=== PATIENT | male | born 1960 | race Caucasian/White ===

== ENCOUNTER 2020-10-29 12:30 | Outpatient (REF) | payer MEDICARE, MEDICAID, SELFPAY ==
--- NOTE | 2020-10-31 08:38 | MHC.AU.AHA ---
Adult Audiological Evaluation Date of Visit: 10/31/20 Reason for Appointment: History of hearing loss. Patient arrives to determine if there has been a change in hearing. Previous Hearing Test Results: At this clinic on 04/23/2018- Borderline-normal sloping to severe sensorineural hearing loss bilaterally Ear History: Recent Ear Drainage: None Reported Recent Ear Pain: None Reported Previous Ear Surgery: None Reported Bothersome Tinnitus/Ringing/Noises in Ears: None Reported History of occupational noise exposure?: No History: No Medical History: Medical History: Autism Spectrum Disorder, Dementia, Tremor, Hypertension, Diabetes Hearing Instrument History- Right Ear: Procurement Representative: [email or web address] Model: [employer]0-P BTE Serial Number: [id number] Battery Size: 13 Repair Warranty: 09/01/2017 Loss and Damage Warranty: 09/01/2017 Dispensed By: [facility] Date of Fittin06/25/2015 Hearing Instrument History- Left Ear: Procurement Representative: [email or web address] Model: [employer]0-P [employer] Serial Number: [id number] Battery Size: 13 Warranty: 09/01/2017 Loss and Damage Warranty: 09/01/2017 Dispensed By: [facility] Date of Fittin06/25/2015 Otoscopy: Right Ear: Unremarkable Left Ear: Unremarkable Tympanometry: Tympanometry performed due to: To assess integrity of the middle ear system Right Ear: Normal Middle Ear System (Type A) Left Ear: Normal Middle Ear System (Type A) Hearing Evaluation: Transducer(s) Used: Insert Earphones Method: Conventional Audiometry Stimuli Used: Pure Tones Right Ear: Description of Hearing: Mild sloping to profound sensorineural hearing loss Left Ear: Description of Hearing: Mild sloping to profound sensorineural hearing loss Speech Recognition Threshold (SRT): Method Used: Recorded Lists Stimuli Used: Spondee Words Right Ear: 50 dBHL Left Ear: 45 dBHL Word Discrimination: Method: Recorded Lists Word Lists Used: NU-6 Right Ear: 92% at 80 dBHL Left Ear: 92% at 80 dBHL Comparison: Compared to the most recent evaluation: Thresholds have decreased bilaterally. Recommendations: Audiological re-evaluation in one year. Hearing aid maintenance performed today. Hearing aid(s) reprogrammed with updated test results. See Hearing Aid Evaluation report for more information. Diagnosis: Primary Diagnosis: H90.3 Bilateral Sensorineural Hearing Loss Secondary Diagnosis: Services Performed: Comprehensive Audiological Evaluation (CPT 30460), Tympanometry (CPT 54013) Signature: Provider: Benedicto Schafer, CCC-A
--- NOTE | 2020-10-31 08:39 | MHC.AU.MED ---
Medical Clearance for Hearing Instrumentation Date: 10/29/20 Patient Name: Ashish Prieto Date of : 1960 Primary Care Provider: Referring Provider: Kathleen Clarke MD We have seen your patient on 10/31/20 and have determined that they are a candidate for amplification (See accompanying report). Specifically, they would benefit from: Hearing aid use in both ears There is a statute that addresses Medical Evaluation Requirements prior to fitting a patient with a hearing aid. According to [place] statute 265 CMR:6.03(1), (a) General. Except as provided in 265 CMR 6.03(1)(b), a validation manager shall not sell a hearing aid unless the prospective user has presented to the validation manager a written statement signed by a licensed physician that states that the patient's hearing loss has been medically evaluated and the patient may be considered a candidate for a hearing aid. The medical evaluation must have taken place within the preceding six months. Please note: Due to the [place] Statute referenced above, we cannot accept a signature other than that of a licensed physician. AIRPLANE GASTANK LINER ASSEMBLER and PA signatures cannot be accepted. I am in agreement with the above recommendation. There is no medical contraindication for hearing instrumentation. Physician Signature Date Physician Name (Printed)
--- NOTE | 2020-10-31 08:50 | MHC.AU.HAS ---
Hearing Aid Evaluation Date of Visit: 10/31/20 Historical Information: Description of Hearing: Mild sloping to profound sensorineural hearing loss Current personal amplification information, if applicable: Phonak Bolero V50-P BTE Summary: Patient was seen for audiological re-evaluation (see separate report for details). Hearing aid options were discussed with patient and his sister. His sister thinks the slim tube style may be easier to the patient to insert on his own, and that rechargeable may also be easier for the patient to use as well. If the patient does not find the slim tube easier to insert, it can always be replaced with a tone hook and mold in the future. Patient does not have any Bluetooth devices he uses on a regular basis. Hearing Aid Prescription: Based on the individual?s shared listening needs, communication environments, dexterity, desire for connectivity, and personal preferences, the following prescription for amplification has been made: Right ear: Building Carpenter: Phonak Model: Bolero M70-R Battery Size: 13 Color: White Tubing: Size 1 slim tube Left ear: Building Carpenter: Phonak Model: Bolero M70-R Battery Size: 13 Color: White Tubing: Size 1 slim tube Action Taken/Action Needed: Medical Clearance to be requested from PCP/ENT Hearing Fitting to be scheduled when materials arrive Call sister when materials are in at (cell) [phone]. Primary Diagnosis: H90.3 Bilateral Sensorineural Hearing Loss Signature: Provider: Benedicto Schafer, CCC-A
--- NOTE | 2020-10-31 11:04 | MHC.AU.MED ---
Medical Clearance for Hearing Instrumentation Date: 10/31/20 Patient Name: Ashish Prieto Date of : 1960 Primary Care Provider: Referring Provider: Kathleen Clarke MD We have seen your patient on 10/29/20 and have determined that they are a candidate for amplification (See accompanying report). Specifically, they would benefit from: Hearing aid use in the right ear Hearing aid use in the left ear Hearing aid use in both ears There is a statute that addresses Medical Evaluation Requirements prior to fitting a patient with a hearing aid. According to [place] statute 265 CMR:6.03(1), (a) General. Except as provided in 265 CMR 6.03(1)(b), a office coordinator receptionist shall not sell a hearing aid unless the prospective user has presented to the office coordinator receptionist a written statement signed by a licensed physician that states that the patient's hearing loss has been medically evaluated and the patient may be considered a candidate for a hearing aid. The medical evaluation must have taken place within the preceding six months. Please note: Due to the [place] Statute referenced above, we cannot accept a signature other than that of a licensed physician. JOB PRINTER APPRENTICE and PA signatures cannot be accepted. I am in agreement with the above recommendation. There is no medical contraindication for hearing instrumentation. Physician Signature Date Physician Name (Printed)
--- NOTE | 2020-10-31 11:05 | MHC.AU.MED ---
Medical Clearance for Hearing Instrumentation Date: 10/31/20 Patient Name: Ashish Prieto Date of : 1960 Primary Care Provider: Referring Provider: Kathleen Clarke MD We have seen your patient on 10/29/20 and have determined that they are a candidate for amplification (See accompanying report). Specifically, they would benefit from: Hearing aid use in both ears There is a statute that addresses Medical Evaluation Requirements prior to fitting a patient with a hearing aid. According to [place] statute 265 CMR:6.03(1), (a) General. Except as provided in 265 CMR 6.03(1)(b), a hearing aid specialist shall not sell a hearing aid unless the prospective user has presented to the hearing aid specialist a written statement signed by a licensed physician that states that the patient's hearing loss has been medically evaluated and the patient may be considered a candidate for a hearing aid. The medical evaluation must have taken place within the preceding six months. Please note: Due to the [place] Statute referenced above, we cannot accept a signature other than that of a licensed physician. CREAM BUYER and PA signatures cannot be accepted. I am in agreement with the above recommendation. There is no medical contraindication for hearing instrumentation. Physician Signature Date Physician Name (Printed)
== END 2020-10-29 12:31 | disposition home or self-care (01) ==
LOC: HO.SH 12:30
PROVIDERS: Visit Provider Internal Medicine
DX: Z46.1 Encounter for fitting and adjustment of hearing aid (principal); H90.3 Sensorineural hearing loss, bilateral
CPT/HCPCS: 92557; 92567; 92591

== ENCOUNTER 2020-11-14 10:58 | Outpatient (REF) | payer MEDICARE, MEDICAID, SELFPAY ==
--- NOTE | 2020-11-15 09:59 | MHC.AU.HFA ---
Hearing Instrument Fitting- Adult- Binaural Date of Visit: 11/14/20 Hearing Instruments Dispensed: Right Ear: Truck Striker: Phonak Model: [employer] M70-R Serial Number: [id number] Repair Warranty: 01/30/2024 Loss and Damage Warranty: 01/30/2024 Battery Size: Rechargeable Color: White Tubing: Size 1 slim tube Type of Dome: Small Vented Left Ear: Truck Striker: Phonak Model: [employer] M70-R Serial Number: [id number] RepairWarranty: 01/30/2024 Loss and Damage Warranty: 01/30/2024 Battery Size: Rechargeable Color: White Tubing: Size 1 slim tube Type of Dome: Small Vented Summary of Fitting: Feedback support manager was run. Verifit performed and levels adjusted to better reach targets. Target gain at 100%. Patient reports the sound is comfortable, and not too loud. Patient does not have a smartphone to pair to the hearing aids. Hearing aid care and use were discussed and practiced. Patient and his caregiver are both experienced hearing aid users. Recommendations: Recommendations: Patient's caregiver will call if follow-up is needed. Diagnosis Code(s): Primary Diagnosis: H90.3 Bilateral Sensorineural Hearing Loss Signature: Provider: Benedicto Schafer, ALEKSEY-A
== END 2020-11-14 10:59 | disposition home or self-care (01) ==
LOC: HO.HAP 10:58
PROVIDERS: Visit Provider Internal Medicine
DX: Z46.1 Encounter for fitting and adjustment of hearing aid (principal); H90.3 Sensorineural hearing loss, bilateral
CPT/HCPCS: V5011; V5020; V5160; V5261

== ENCOUNTER 2020-12-10 15:22 | Outpatient (REF) | payer MEDICARE, MEDICAID, SELFPAY ==
--- NOTE | 2020-12-11 10:47 | MHC.AU.P13 ---
Hearing Instrument Problem Date of Visit: 12/10/20 Right Ear: Caustic Operator: Phonak Model: [employer] M70-R Serial Number: [id number] Repair Warranty: 01/30/2024 Loss and Damage Warranty: 01/30/2024 Battery Size: Rechargeable Color: White Tubing: Size 1 slim tube Type of Dome: Small Vented Left Ear: Caustic Operator: Phonak Model: [employer] M70-R Serial Number: [id number] Repair Warranty: 01/30/2024 Loss and Damage Warranty: 01/30/2024 Battery Size: Rechargeable Color: White Tubing: Size 1 slim tube Type of Dome: Small Vented Follow-Up Summary: Assistant Nurse Manager dropped off aids/principal software engineer stating not charging. It appears left is not charging - sent both to [employer] for repair/check - principal software engineer in repair drawer. Assistant Nurse Manager reports patient using old hearing aids for now. Recommendations: Recommendations: Patient will be contacted when materials have arrived. Signature: Provider: DI Dupont
== END 2020-12-10 15:23 | disposition home or self-care (01) ==
LOC: HO.HAP 15:22
PROVIDERS: Visit Provider Internal Medicine
DX: Z13.89 Encounter for screening for other disorder (principal)

== ENCOUNTER 2020-12-24 12:56 | Outpatient (REF) | payer MEDICARE, MEDICAID, SELFPAY | END 2020-12-24 12:57 | disposition home or self-care (01) | LOC: HO.HAP 12:56 | PROVIDERS: Visit Provider Internal Medicine | DX: Z13.89 Encounter for screening for other disorder (principal) ==

== ENCOUNTER 2021-03-28 10:10 | Outpatient (REF) | payer MEDICARE, MEDICAID, SELFPAY ==
[2021-03-28 10:58] LABS: MANUAL DIFF FLAG NO
[2021-03-28 11:05] LABS: Basophils Absolute Auto 0.1 X10*3/uL (0.0-0.2); Basophils Percent Auto 0.8 % (0-2); Eosinophils Absolute Auto 0.1 X10*3/uL (0.0-0.4); Eosinophils Percent Auto 1.5 % (0-4); Hematocrit 45.2 % (42-52); Hemoglobin 15.5 g/dl (14.0-18.0); Imm Gran Abs Auto 0.14 X10*3/uL (0.00-0.03); Imm Gran Pct Auto 1.8 % (0.0-0.4); Lymphocytes Absolute Auto 0.9 X10*3/uL (1.2-4.9); Mean Corpuscular HGB Conc 34.3 g/dl (31.0-36.0); Mean Corpuscular Hemoglobin 29.3 pg (27.0-33.0); Mean Corpuscular Volume 85.4 fL (80-98); Mean Platelet Volume 8.9 fL (9.4-12.4); Monocytes Absolute Auto 0.5 X10*3/uL (0.1-1.2); Monocytes Percent Auto 6.6 % (2-11); Neutrophils Absolute Auto 6.1 X10*3/uL (2.0-8.3); Neutrophils Percent Auto 78.3 % (45-73); Platelet Count 162 X10*3/uL (160-400); Red Blood Count 5.29 X10*6/uL (4.60-5.80); Red Cell Distribution Width 13.3 % (11.0-16.0); White Blood Count 7.8 X10*3/uL (4.8-10.8)
[2021-03-28 11:10] LABS: Estimated Average Glucose 108 mg/dL; Hemoglobin A1c % 5.4 %
[2021-03-28 11:28] LABS: Alanine Aminotransferase 17 U/L (0-40); Albumin Level 4.4 g/dL (3.5-5.0); Alkaline Phosphatase 79 U/L (39-117); Anion Gap 11 (12-20); Aspartate Amino Transferase 14 U/L (5-37); Blood Urea Nitrogen 11 mg/dL (9-16); Calcium 9.5 mg/dL (8.4-10.2); Carbon Dioxide 29 mmol/L (22-29); Chloride 105 mmol/L (96-108); Cholesterol 135 mg/dL; Estimated Glomerular Filt Rate > 60; Glucose Random 164 mg/dL (60-115); HDL Cholesterol 41 mg/dL; LDL Cholesterol Calculated 76 mg/dl; Potassium 4.1 mmol/L (3.3-5.1); Sodium 141 mmol/L (135-145); Total Protein 6.5 g/dL (6.5-8.0); Triglycerides 91 mg/dL
[2021-03-28 11:52] LABS: Free T4 (Free Thyroxine) 0.87 ng/dL (0.71-1.85); Prostate Specific Antigen Scr 0.89 ng/mL (<0.05-4.0); Thyroid Stimulating Hormone 1.85 uIU/mL (0.32-4.0)
== END 2021-03-28 10:11 | disposition home or self-care (01) ==
LOC: HO.LAB 10:10
PROVIDERS: PCP Internal Medicine; Visit Provider Internal Medicine
DX: Z12.5 Encounter for screening for malignant neoplasm of prostate (principal); E11.65 Type 2 diabetes mellitus with hyperglycemia; E78.00 Pure hypercholesterolemia, unspecified
CPT/HCPCS: 36415; 80053; 80061; 83036; 84153; 84439; 84443; 85025

== ENCOUNTER 2021-03-29 11:52 | Outpatient (REF) | payer MEDICARE, MEDICAID, SELFPAY ==
[2021-03-29 12:35] LABS: Microalbum/Creatinine Ratio Ur 8.3 ug/mg cr
== END 2021-03-29 11:53 | disposition home or self-care (01) ==
LOC: HO.LNP 11:52
PROVIDERS: Visit Provider Internal Medicine
DX: E11.65 Type 2 diabetes mellitus with hyperglycemia (principal)
CPT/HCPCS: 82043

== ENCOUNTER 2022-02-18 13:42 | Outpatient (REF) | payer MEDICARE, MEDICAID, SELFPAY ==
--- NOTE | ~2022-02-18 | US_ITS ---
EXAMINATION: US PELVIS LIMITED (BLADDER) CLINICAL INFORMATION: Urinary incontinence. COMPARISON: Ultrasound urinary bladder 03/29/2014. TECHNIQUE: Real-time imaging of the bladder. FINDINGS: BLADDER: Partially distended. Bilateral ureteral jets are demonstrated. Prevoid bladder volume is 62.6 mL. Postvoid bladder volume: Patient could not void. US/US bladder IMPRESSION: With a bladder volume of 62.6 mL, the patient was unable to void.
== END 2022-02-18 13:43 | disposition home or self-care (01) ==
LOC: HO.HMGCX 13:42
PROVIDERS: Visit Provider Internal Medicine
DX: R32 Unspecified urinary incontinence (principal)
CPT/HCPCS: 76857

== ENCOUNTER 2022-02-22 07:17 | Outpatient (REF) | payer MEDICARE, MEDICAID, SELFPAY ==
[2022-02-22 11:01] LABS: MANUAL DIFF FLAG NO
[2022-02-22 11:05] LABS: Basophils Percent Auto 0.5 % (0-2); Eosinophils Absolute Auto 0.1 X10*3/uL (0.0-0.4); Eosinophils Percent Auto 2.1 % (0-4); Hematocrit 41.8 % (42.0-52.0); Hemoglobin 14.2 g/dl (14.0-18.0); Imm Gran Abs Auto 0.08 X10*3/uL (0.00-0.03); Imm Gran Pct Auto 1.3 % (0.0-0.4); Lymphocytes Absolute Auto 0.8 X10*3/uL (1.2-4.9); Lymphocytes Percent Auto 12.8 % (20-40); Mean Corpuscular Hemoglobin 29.5 pg (27.0-33.0); Mean Corpuscular Volume 86.7 fL (80.0-98.0); Mean Platelet Volume 9.7 fL (9.4-12.4); Monocytes Absolute Auto 0.6 X10*3/uL (0.1-1.2); Neutrophils Absolute Auto 4.6 x10*3/uL (2.0-8.3); Neutrophils Percent Auto 74.3 % (45-73); Platelet Count 148 X10*3/uL (160-400); Red Blood Count 4.82 X10*6/uL (4.60-5.80); Red Cell Distribution Width 14.1 % (11.0-16.0); White Blood Count 6.2 X10*3/uL (4.8-10.8)
[2022-02-22 11:17] LABS: Estimated Average Glucose 114 mg/dL; Hemoglobin A1c % 5.6 %
[2022-02-22 11:35] LABS: Alanine Aminotransferase 21 U/L (0-40); Albumin Level 4.2 g/dL (3.5-5.0); Alkaline Phosphatase 82 U/L (39-117); Anion Gap 8 (12-20); Aspartate Amino Transferase 12 U/L (5-37); Bilirubin Total 0.3 mg/dL (0.0-1.0); Blood Urea Nitrogen 17 mg/dL (9-16); Calcium 8.4 mg/dL (8.4-10.2); Carbon Dioxide 29 mmol/L (22-29); Chloride 109 mmol/L (96-108); Cholesterol 106 mg/dL; Estimated Glomerular Filt Rate > 60; Glucose Random 183 mg/dL (60-115); HDL Cholesterol 38 mg/dL; LDL Cholesterol Calculated 50 mg/dl; Potassium 4.6 mmol/L (3.3-5.1); Sodium 141 mmol/L (135-145); Total Protein 6.2 g/dL (6.5-8.0); Triglycerides 91 mg/dL
[2022-02-22 11:44] LABS: Free T4 (Free Thyroxine) 0.82 ng/dL (0.71-1.85); Prostate Specific Antigen Scr 0.67 ng/mL (<0.05-4.0); Thyroid Stimulating Hormone 1.34 uIU/mL (0.32-4.0)
[2022-02-22 11:45] LABS: Microalbum/Creatinine Ratio Ur 6.2 ug/mg cr
[2022-02-22 11:58] LABS: Folate 6.8 ng/mL (> or = 4.0); Vitamin B12 486 pg/mL (200-900)
== END 2022-02-22 07:18 | disposition home or self-care (01) ==
LOC: HO.HMGCLDS 07:17
PROVIDERS: PCP Internal Medicine; Visit Provider Internal Medicine
DX: Z12.5 Encounter for screening for malignant neoplasm of prostate (principal); E11.65 Type 2 diabetes mellitus with hyperglycemia; E78.00 Pure hypercholesterolemia, unspecified; I10 Essential (primary) hypertension
CPT/HCPCS: 36415; 80053; 80061; 82043; 82607; 82746; 83036; 84153; 84439; 84443; 85025

== ENCOUNTER 2022-03-27 12:30 | Outpatient (REF) | payer MEDICARE, MEDICAID, SELFPAY ==
--- NOTE | 2022-03-28 08:13 | MHC.AU.AHA ---
Adult Audiological Evaluation Date of Visit: 03/27/22 Reason for Appointment: History of hearing loss. He arrives today to determine if there has been a change in hearing. His supervisor fabrication reports that as his dementia progresses, his self-injurious behaviors have increased, including hitting his head and ears. She is concerned that he could be damaging his ears or hearing. They are working with his medical team to reduce these behaviors. Previous Hearing Test Results: At this clinic on 10/29/2020- Mild to profound sensorineural hearing loss bilaterally, worse in the right ear from 250-1000 Hz Medical History: Medical History: Autism Spectrum Disorder, Dementia, Tremor, Hypertension, Diabetes Hearing Instrument History- Right Ear: Manufacturing Test Technician: Connolly Model: [employer] Digital70-R Serial Number: [id number] Battery Size: Rechargeable Repair Warranty: 01/30/2024 Loss and Damage Warranty: 01/30/2024 Dispensed By: [facility] Date of Fittin11/14/2020 Hearing Instrument History- Left Ear: Manufacturing Test Technician: Connolly Model: [employer] Digital70-R Serial Number: [id number] Battery Size: Rechargeable Warranty: 01/30/2024 Loss and Damage Warranty: 01/30/2024 Dispensed By: [facility] Date of Fittin11/14/2020 Otoscopy: Right Ear: Partially occluded with cerumen- cerumen removal performed prior to testing Left Ear: Partially occluded with cerumen- cerumen removal performed prior to testing Tympanometry: Tympanometry performed due to: To assess integrity of the middle ear system Right Ear: Normal Middle Ear System (Type A) Left Ear: Hypercompliant Middle Ear System (Type Ad) Hearing Evaluation: Transducer(s) Used: Insert Earphones Method: Conventional Audiometry Stimuli Used: Pure Tones Right Ear: Description of Hearing: Moderate to profound sensorineural hearing loss Left Ear: Description of Hearing: Mild to profound sensorineural hearing loss Speech Recognition Threshold (SRT): Method Used: Monitored Live Voice Stimuli Used: Spondee Words Right Ear: 45 dBHL Left Ear: 35 dBHL Word Discrimination: Method: Recorded Lists Word Lists Used: W-22 Right Ear: 96% at 85 dBHL Left Ear: 88% at 85 dBHL Comparison: Compared to the most recent evaluation: Thresholds have decreased bilaterally. Recommendations: Audiological re-evaluation in one year. See Hearing Aid Follow-Up note for more information. Diagnosis: Primary Diagnosis: H90.3 Bilateral Sensorineural Hearing Loss Signature: Provider: Benedicto Schafer, ALEKSEY-A
--- NOTE | 2022-03-28 08:15 | MHC.AU.HFU ---
Hearing Instrument Follow-Up- Binaural Date of Visit: 03/27/22 Right Ear: Printed Circuit Board Reworker: Phonak Model: Bolero M70-R Serial Number: [id number] Repair Warranty: 01/30/2024 Loss and Damage Warranty: 01/30/2024 Battery Size: Rechargeable Color: White Tubing: Size 1 slim tube Type of Dome: Small Vented Left Ear: Printed Circuit Board Reworker: Phonak Model: Bolero M70-R Serial Number: [id number] Repair Warranty: 01/30/2024 Loss and Damage Warranty: 01/30/2024 Battery Size: Rechargeable Color: White Tubing: Size 1 slim tube Type of Dome: Small Vented Follow-Up Summary: Patient was seen for audiological re-evaluation (see separate report for details). Hearing aid maintenance performed. Slim tubes and domes replaced. Patient's caregiver reports that the slim tubes pop out of his ears frequently, and due to the small size of his pinna, the retention tails do not stay in place. Impressions were taken bilaterally without incident and will be sent to [facility] for M2000 skeleton molds in clear. His hearing has slightly decreased in both ears. No programming changes were made today. When the new molds arrive, will update the programming to reflect the changes in the audiogram as well as the change in mold. Recommendations:mPatient will be contacted when materials have arrived. Diagnosis Code(s): Primary Diagnosis: H90.3 Bilateral Sensorineural Hearing Loss Signature: Provider: Benedicto Schafer, CCC-A
== END 2022-03-27 12:31 | disposition home or self-care (01) ==
LOC: HO.SH 12:30
PROVIDERS: Visit Provider Internal Medicine
DX: H90.3 Sensorineural hearing loss, bilateral (principal)
CPT/HCPCS: 92557; 92567; V5275

== ENCOUNTER 2022-05-16 14:48 | Outpatient (REF) | payer MEDICARE, MEDICAID, SELFPAY | END 2022-05-16 14:49 | disposition home or self-care (01) | LOC: HO.HAP 14:48 | PROVIDERS: Visit Provider Internal Medicine | DX: Z46.1 Encounter for fitting and adjustment of hearing aid (principal); H90.3 Sensorineural hearing loss, bilateral | CPT/HCPCS: V5264 ==

== ENCOUNTER → 2022-05-30 13:24 | Outpatient (BNVA) | payer MEDICARE, MEDICAID, SELFPAY | PROVIDERS: PCP Internal Medicine; Visit Provider Nurse Practitioner Family | DX: Z12.11 Encounter for screening for malignant neoplasm of colon (principal) | CPT/HCPCS: 99202 ==

== ENCOUNTER 2022-12-09 15:20 | Outpatient (REF) | payer MEDICARE, MEDICAID, SELFPAY ==
--- NOTE | 2022-12-09 16:02 | MHC.AU.HFU ---
Hearing Instrument Follow-Up- Binaural Date of Visit: 12/09/22 Right Ear: Micky Mccall M70-R, #[id number], white Repair Warranty: 01/30/2024 Loss and Damage Warranty: 01/30/2024 Battery Size: Rechargeable Tubing: Size 1 slim tube Type of Mold: Microsonic M2000 Skeleton-style, clear, medium vent, made to fit slim tube Dispensed By: [facility] Date of Fittin11/14/2020 Left Ear: Micky Mccall M70-R, #[id number], white Repair Warranty: 01/30/2024 Loss and Damage Warranty: 01/30/2024 Battery Size: Rechargeable Tubing: Size 1 slim tube Type of Mold: Microsonic M2000 Skeleton-style, clear, medium vent, made to fit slim tube Dispensed By: [facility] Date of Fittin11/14/2020 Follow-Up Summary: The patient is here today for a remake left ear mold fitting, accompanied by a caregiver. Ashish lost his left ear mold while at his day program. Upon arrival today I noticed right and left slim tubes were on the wrong hearing aids. I re-attached the slim tubes to the correct hearing aids. I placed the new left mold on the slim tube. Good fit noted bilaterally with no feedback. Ashish's caregiver has noticed that she needs to really push his hearing aids into his internal auditor to get them to charge. I recommended cleaning the internal auditor contacts with an alcohol swab first and seeing if that resolves the issue. She will try this. If no improvement she will call us to place an order for a new internal auditor. Billed insurance for new left mold. Diagnosis Code(s): Primary Diagnosis: H90.3 Bilateral Sensorineural Hearing Loss Signature: I have reviewed/agreed with student/fellow documentation: Provider: Benedicto Schmitz, [facility]
== END 2022-12-09 15:21 | disposition home or self-care (01) ==
LOC: HO.HAP 15:20
PROVIDERS: Visit Provider Internal Medicine
DX: Z46.1 Encounter for fitting and adjustment of hearing aid (principal); H90.3 Sensorineural hearing loss, bilateral
CPT/HCPCS: V5264

== ENCOUNTER 2023-03-23 10:05 | Outpatient (REF) | payer MEDICARE, MEDICAID, SELFPAY ==
[2023-03-23 13:22] LABS: MANUAL DIFF FLAG NO
[2023-03-23 13:57] LABS: Basophils Percent Auto 0.6 % (0-2); Eosinophils Absolute Auto 0.1 X10*3/uL (0.0-0.4); Eosinophils Percent Auto 2.2 % (0-4); Hematocrit 44.4 % (42.0-52.0); Hemoglobin 15.2 g/dl (14.0-18.0); Imm Gran Abs Auto 0.05 X10*3/uL (0.00-0.03); Imm Gran Pct Auto 0.8 % (0.0-0.4); Lymphocytes Absolute Auto 0.8 X10*3/uL (1.2-4.9); Lymphocytes Percent Auto 13.2 % (20-40); Mean Corpuscular HGB Conc 34.2 g/dl (31.0-36.0); Mean Corpuscular Hemoglobin 29.5 pg (27.0-33.0); Mean Corpuscular Volume 86.2 fL (80.0-98.0); Mean Platelet Volume 9.5 fL (9.4-12.4); Monocytes Absolute Auto 0.5 X10*3/uL (0.1-1.2); Monocytes Percent Auto 7.3 % (2-11); Neutrophils Absolute Auto 4.8 x10*3/uL (2.0-8.3); Neutrophils Percent Auto 75.9 % (45-73); Platelet Count 164 X10*3/uL (160-400); Red Blood Count 5.15 X10*6/uL (4.60-5.80); Red Cell Distribution Width 13.7 % (11.0-16.0); White Blood Count 6.3 X10*3/uL (4.8-10.8)
[2023-03-23 14:01] LABS: Estimated Average Glucose 91 mg/dL; Hemoglobin A1c % 4.8 % (<6.0)
[2023-03-23 14:20] LABS: Alanine Aminotransferase 23 U/L (0-40); Albumin Level 4.2 g/dL (3.5-5.0); Alkaline Phosphatase 82 U/L (39-117); Anion Gap 12 (12-20); Aspartate Amino Transferase 15 U/L (5-37); Blood Urea Nitrogen 11 mg/dL (9-16); Calcium 9.5 mg/dL (8.4-10.2); Carbon Dioxide 26 mmol/L (22-29); Chloride 107 mmol/L (96-108); Cholesterol 111 mg/dL (<200); Estimated Glomerular Filt Rate > 60; Glucose Random 141 mg/dL (60-115); HDL Cholesterol 38 mg/dL (>40); LDL Cholesterol Calculated 58 mg/dL (<100); Potassium 4.4 mmol/L (3.3-5.1); Sodium 141 mmol/L (135-145); Total Protein 6.7 g/dL (6.5-8.0); Triglycerides 75 mg/dL (<150)
[2023-03-23 14:21] LABS: Free T4 (Free Thyroxine) 0.83 ng/dL (0.71-1.85); Thyroid Stimulating Hormone 1.51 uIU/mL (0.32-4.0)
[2023-03-23 14:36] LABS: Folate 6.4 ng/mL (> or = 4.0); Prostate Specific Antigen Scr 0.73 ng/mL (<0.05-4.0); Vitamin B12 834 pg/mL (200-900)
== END 2023-03-23 10:06 | disposition home or self-care (01) ==
LOC: HO.HMGCLDS 10:05
PROVIDERS: PCP Internal Medicine; Visit Provider Internal Medicine
DX: E11.65 Type 2 diabetes mellitus with hyperglycemia (principal); E78.00 Pure hypercholesterolemia, unspecified; Z12.5 Encounter for screening for malignant neoplasm of prostate
CPT/HCPCS: 36415; 80053; 80061; 82607; 82746; 83036; 84153; 84439; 84443; 85025

== ENCOUNTER 2023-03-24 07:00 | Outpatient (REF) | payer MEDICARE, MEDICAID, SELFPAY ==
[2023-03-24 14:17] LABS: Creatinine Urine 219.05 mg/dL; Microalbum/Creatinine Ratio Ur 6.8 ug/mg cr (<30)
== END 2023-03-24 07:01 | disposition home or self-care (01) ==
LOC: HO.HMGCLNP 07:00
PROVIDERS: PCP Internal Medicine; Visit Provider Internal Medicine
DX: E11.65 Type 2 diabetes mellitus with hyperglycemia (principal)
CPT/HCPCS: 82043

== ENCOUNTER 2023-04-03 13:31 | Outpatient (AMB) | payer MEDICARE, MEDICAID, SELFPAY ==
[2023-04-03 13:45] VITALS: BP 134/72; PULSE 78; O2SAT 98; BMI 22.5
--- NOTE | 2023-04-03 13:45 | A.OFFPC_ITS ---
Vital Signs 04/03/23 13:45 Height 5 ft 4 in Weight 131 lb BMI 22.5 BP 134/72 Blood Pressure Location Lt brachial Position Sitting Pulse 78 Pulse Source Pulse Oximeter Pulse Oximetry (%) 98 Oxygen Delivery Method Room Air Intake Visit Reasons: PE Allergies benztropine Adverse Reaction (Intermediate, Uncoded 04/03/23 13:46) rash Medication List - Last Reconciled 04/03/23 by Kathleen Clarke MD acetaminophen ER (Tylenol 8 Hour) 650 mg PO Q8H PRN aripiprazole (Abilify) 10 mg PO BEDTIME aspirin (Adult Aspirin Regimen) 81 mg PO DAILY bisacodyl (Dulcolax (bisacodyl)) 10 mg (2 x 5 mg) PO BEDTIME 7 days clonazepam 0.5 mg PO BID PRN [DIABETIC SNEAKERS As directed] docusate sodium 100 mg PO BID fluoxetine 20 mg PO DAILY fluticasone propionate 50 mcg/actuation (Flonase Allergy Relief) 1 spray intranasal DAILY lisinopril 5 mg PO QAM polyethylene glycol 3350 (Miralax) 238 grams PO ONCE propranolol 20 mg PO BID simvastatin 20 mg PO BEDTIME Tobacco use date assessed: 09/23/22 Dental Screening Dental Screen Date: 04/03/23 Did you have a dental visit in the last 12 months?: Yes Did you have a dental problem in the last 6 months where you did not have access to dental care?: No Was dental information given to patient?: Patient has dentist HPI PE HPI Details 62-year-old male with autism controlled diabetes mellitus hypercholesterolemia hypertension dementia last seen in September 2022. Patient is here for physical exam. Colonoscopy done 2010. [facility] Medical History (Updated 04/03/23 @ 14:09 by Kathleen Clarke MD) Autism Colon cancer screening Dementia Hypercholesterolemia Hypertension Impulse control disease Obsessive compulsive disorder TIA (transient ischemic attack) Type 2 diabetes mellitus with hyperglycemia Urinary incontinence Surgical History (Updated 09/11/22 @ 12:44 by Julia Bolton RN) Hx of colonoscopy Hx of hemorrhoidectomy Family History Father Medical history unknown Mother Medical history unknown Sister No problems noted. Social History Housing: Apartment Alcohol intake: never Patient Tobacco Use Status: Never used Tobacco e-Cigarette/Vaping Use: Never Used Second Hand Smoke Exposure: No service: No Current occupational status: disabled Cognitive needs: Yes Hearing needs: Yes (hearing aides) Vision needs: No Questionnaire PHQ-9 Over the last 2 weeks, how often have you been bothered by any of the following problems? 1. Little interest or pleasure in doing things: not at all 2. Feeling down, depressed, or hopeless: nearly every day 3. Trouble falling or staying asleep, or sleeping too much: more than half the days 4. Feeling tired or having little energy: several days 5. Poor appetite or overeating: not at all 6. Feeling bad about yourself - or that you are a failure or have let yourself or your family down: not at all 7. Trouble concentrating on things, such as reading the newspaper or watching television: not at all 8. Moving or speaking so slowly that other people could have noticed. Or the opposite - being so fidgety or restless that you have been moving around a lot more than usual: not at all 9. Thoughts that you would be better off or of hurting yourself in some way: not at all Total score: 6 Depression Screening Interpretation: Positive Source: Developed by Drs. Rafael Gonsales, Lilia Kate, Paco Barr and colleagues, with an educational pauline from [employer]. Thrive Questionnaire Date Thrive assessed: 09/23/22 AUDIT C Alcohol Use Questionnaire (AUDIT-C) 1. How often do you have a drink containing alcohol?: Never 3. How often do you have six or more drinks on one occasion?: Never Total Score: 0 MALIA-7 AMB Questionnaire MALIA-7 Date MALIA - 7 assessed: 09/23/22 Source: Developed by Lilia Thompson Kurt Kroenke and colleagues, with an educational pauline from [employer]. Review of Systems Const Denies poor appetite and Denies weakness Eyes Denies no additional complaints ENT Reports Normal hearing present, Denies dizziness, Denies nasal congestion, Denies tinnitus and Denies sore throat Card Denies chest pain, Denies syncope, Denies rapid heart rate and Denies dyspnea Resp Denies cough and Denies dyspnea GI Denies change in stool character, Reports constipation, Denies diarrhea, Denies nausea and Denies vomiting Denies dysuria and Denies urinary frequency Neuro Reports Normal hearing present, Denies confusion, Denies dizziness, Denies syncope and Denies weakness Psych Denies confusion Physical exam (Primary Care) Vital Signs: Last Vital Signs Pulse 78 04/03/23 13:45 BP 134/72 04/03/23 13:45 Pulse Ox 98 04/03/23 13:45 Oxygen Delivery Method Room Air 04/03/23 13:45 Care Plan Goal for BP management: patient has automatism on the hands and mouth tremors Next steps: multiple abrasion left garcia BMI result Body Mass Index 22.5 Tobacco/Smoking Status: Tobacco use Status Tobacco use date assessed 09/23/22 04/03/23 13:51 Patient Tobacco Use Status Never used Tobacco 04/03/23 13:51 e-Cigarette/Vaping Use Never Used 04/03/23 13:51 PHQ-9: PHQ-9 Score PHQ-9: Total score 6 04/03/23 13:51 Depression Screening Interpretation: Positive Thrive Assessment: Date of Thrive Assessment Date Thrive assessed 09/23/22 04/03/23 13:51 Const General: No confusion Orientation/consciousness: No confusion HENMT Head: Yes normocephalic Ears: external ears normal and TM's normal bilaterally Face and sinus: Yes normal facial exam Mouth: moist mucous membranes Throat: Yes tonsils normal Eyes Conjunctivae: conjunctivae normal Pupils: Equal, round and reactive pupils present and Pupil accommodation reflex normal Direct Ophthalmoscopy: normal light reflex Neck Neck: No lymphadenopathy Thyroid: Thyroid normal Chest Chest palpation & inspection: normal inspection of the chest Resp Effort & Inspection: normal respiratory effort and no audible wheezes Auscultation: clear to auscultation bilaterally, no crackles, no wheezes and lung sounds not diminished Cardio Rate: regular rate Rhythm: regular rhythm Peripheral pulses: radial pulses present and dorsalis pedis present GI Palpation (GI): no masses Auscultation: normal bowel sounds and normoactive bowel sounds Rectal Exam - Male: Yes deferred Skin General skin exam: no rashes or lesions noted Rashes: no rashes Neuro General: No confusion Cranial nerves: Yes Equal, round and reactive pupils present and Yes Normal hearing present Cognition (Neuro): normal cognition Gait exam (Neuro): Normal gait present Motor exam (neuro): 5/5 motor strength present throughout Deep tendon reflexes (DTR's): Right brachioradialis reflex intensity grade: 2+, Left brachioradialis reflex intensity grade: 2+, Right patellar reflex intensity grade: 2+ and Left patellar reflex intensity grade: 2+ Extrem General: No edema Assessment and Plan Assessment & Plan (1) Annual physical exam: Code(s): Z00.00 - Encounter for general adult medical examination without abnormal findings (2) Type 2 diabetes mellitus with hyperglycemia: Code(s): E11.65 - Type 2 diabetes mellitus with hyperglycemia Qualifiers: Diabetes mellitus assisted insulin use: without assisted use Qualified Code(s): E11.65 - Type 2 diabetes mellitus with hyperglycemia Plan: Decrease the amount of carbohydrate intake, pasta, bread, rice and potatoes are all sugar and that is aside from all the sweet stuff, remember that fruits are good but they are Sweet also. Hemoglobin A1c goal of less than 6.5 patient's blood work shows 4.9. Patient is on diet control (3) Hypercholesterolemia: Code(s): E78.00 - Pure hypercholesterolemia, unspecified Plan: Avoid fried foods, chicken skin, eggs, butter margarine, pastries and meat. Be it pork or beef they have a lot of cholesterol LDL goal of less than 100 and triglyceride of less than 150 patient is on simvastatin 20 mg once a day (4) Obsessive compulsive disorder: Code(s): F42.9 - Obsessive-compulsive disorder, unspecified Qualifiers: Obsessive-compulsive disorder type: mixed obsessional thoughts and acts Qualified Code(s): F42.2 - Mixed obsessional thoughts and acts Plan: Patient is presently on fluoxetine 20 mg once a day Abilify 10 mg once a day and clonazepam as needed (5) Autism: Code(s): F84.0 - Autistic disorder (6) Hypertension: Code(s): I10 - Essential (primary) hypertension Qualifiers: Hypertension type: essential hypertension Qualified Code(s): I10 - Essential (primary) hypertension Plan: Continue with blood pressure medication. Decrease salt intake and exercise patient is on lisinopril 5 mg once a day and propranolol 20 mg twice a day Coding Level of Care Code Est Pt Prev Care 40-64y(00816) Diagnoses Annual physical exam Z00.00 Type 2 diabetes mellitus with hyperglycemia E11.65 Diabetes mellitus adjunct faculty for medical terminology insulin use: without adjunct faculty for medical terminology use Hypercholesterolemia E78.00 Obsessive compulsive disorder F42.2 Obsessive-compulsive disorder type: mixed obsessional thoughts and acts Autism F84.0 Hypertension I10 Hypertension type: essential hypertension
== END 2023-04-03 14:33 | disposition home or self-care (01) ==
PROVIDERS: PCP Internal Medicine; Visit Provider Internal Medicine
DX: Z00.00 Encounter for general adult medical examination without abnormal findings (principal); E11.65 Type 2 diabetes mellitus with hyperglycemia; F84.0 Autistic disorder; I10 Essential (primary) hypertension; E78.00 Pure hypercholesterolemia, unspecified; F42.2 Mixed obsessional thoughts and acts
CPT/HCPCS: 99396

== ENCOUNTER 2023-10-02 14:04 | Outpatient (AMB) | payer MEDICARE, MEDICAID, SELFPAY ==
[2023-10-02 14:13] VITALS: BP 136/92; PULSE 74; O2SAT 97; BMI 23.0
--- NOTE | 2023-10-02 14:13 | A.OFFPC_ITS ---
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 Required: No Allergies benztropine Adverse Reaction (Intermediate, Uncoded 10/02/23 14:14) rash Tobacco use date assessed: 10/02/23 Dental Screening Dental Screen Date: 10/02/23 Did you have a dental visit in the last 12 months?: Yes Did you have a dental problem in the last 6 months where you did not have access to dental care?: No Was dental information given to patient?: Patient has dentist HPI DM HPI Details 62-year-old male with controlled diabete s mellitus hypertension hypercholesterolemia obsessive-compulsive disorder autism coming in for follow- up last seen in April 2021 for physical exam. Patient is Cologuard- 23 last complete blood work was done in March 2023. Mike is seeing neurology and will have a test for parkinsons [facility] Medical History (Updated 10/02/23 @ 14:32 by Kathleen Clarke MD) Colon cancer screening Impulse control disease Urinary incontinence Hypercholesterolemia Dementia Obsessive compulsive disorder Autism Hypertension Type 2 diabetes mellitus with hyperglycemia TIA (transient ischemic attack) Surgical History (Updated 09/11/22 @ 12:44 by Julia Bolton RN) Hx of colonoscopy Hx of hemorrhoidectomy Family History Father Medical history unknown Mother Medical history unknown Sister No problems noted. Social History Housing: Apartment Alcohol intake: never Patient Tobacco Use Status: Never used Tobacco e-Cigarette/Vaping Use: Never Used Second Hand Smoke Exposure: No service: No Current occupational status: disabled Cognitive needs: Yes Hearing needs: Yes (hearing aides) Vision needs: No Questionnaire Thrive Questionnaire Date Thrive assessed: 10/02/23 I am a: Patient What is your living situation today?: I have a steady place to live Within the past 12 months, did the food you bought not last and you didn't have the money to get more?: Never true Within the past 12 months, did you worry whether your food would run out before you got money to buy more?: Never true Do you have trouble paying for medicines?: No Do you have trouble getting transportation to medical appointments?: No Do you have trouble paying your heating and electricity bill?: No Do you have trouble taking care of your child, family member or friend?: No Do you have trouble with day-to-day activities such as bathing, preparing meals, shopping, managing finances, etc.?: No Are you currently unemployed and looking for a job?: No Are you interested in more education?: No Please select the resources that you would like help with: None THRIVE Score: 0 AUDIT C Alcohol Use Questionnaire (AUDIT-C) 1. How often do you have a drink containing alcohol?: Never 3. How often do you have six or more drinks on one occasion?: Never Total Score: 0 MALIA-7 AMB Questionnaire MALIA-7 Date MALIA - 7 assessed: 10/02/23 Source: Developed by Drs. Rafael Gonsales, Lilia Kate, Paco Barr and colleagues, with an educational pauline from [employer]. Physical exam (Primary Care) Vital Signs: Last Vital Signs Pulse 74 10/02/23 14:13 BP 136/92 H 10/02/23 14:13 Pulse Ox 97 10/02/23 14:13 Oxygen Delivery Method Room Air 10/02/23 14:13 BMI result Body Mass Index 23.0 Tobacco/Smoking Status: Tobacco use Status Tobacco use date assessed 10/02/23 10/02/23 14:22 Patient Tobacco Use Status Never used Tobacco 10/02/23 14:22 e-Cigarette/Vaping Use Never Used 10/02/23 14:22 Thrive Assessment: Date of Thrive Assessment Date Thrive assessed 10/02/23 10/02/23 14:22 Const General: alert; No acute distress Eyes Conjunctivae: conjunctivae normal Resp Auscultation: clear to auscultation bilaterally Cardio Rate: regular rate Rhythm: regular rhythm GI Inspection: Yes normal to inspection Extrem General: Yes normal to inspection and No edema Results AMB Hemoglobin A1c AMB Hemoglobin A1c 5.2 % Last Edit by LION Ricci on 10/02/23 14:26 Results Reviewed Results Reviewed: Laboratory Last Values Hgb A1c (Clinic) 5.2 % (4.0-6.0) 10/02/23 14:25 Assessment and Plan Assessment & Plan (1) Type 2 diabetes mellitus with hyperglycemia: Comment: Dr. Sawyer Code(s): E11.65 - Type 2 diabetes mellitus with hyperglycemia Qualifiers: Diabetes mellitus halfway insulin use: without ad terminal makeup operator use Qualified Code(s): E11.65 - Type 2 diabetes mellitus with hyperglycemia Plan: Decrease the amount of carbohydrate intake, pasta, bread, rice and potatoes are all sugar and that is aside from all the sweet stuff, remember that fruits are good but they are Sweet also. Since weight loss blood sugars have been in controlled presently on diet control (2) Autism: Code(s): F84.0 - Autistic disorder Plan: Continue follow-up with counseling and therapy (3) Hypertension: Code(s): I10 - Essential (primary) hypertension Qualifiers: Hypertension type: essential hypertension Qualified Code(s): I10 - Essential (primary) hypertension Plan: Continue with blood pressure medication. Decrease salt intake and exercise on propranolol 20 mg twice a day lisinopril 5 mg once a day (4) Hypercholesterolemia: Code(s): E78.00 - Pure hypercholesterolemia, unspecified Plan: Avoid fried foods, chicken skin, eggs, butter margarine, pastries and meat. Be it pork or beef they have a lot of cholesterol March 2023 last blood work LDL goal of less than 100 and triglyceride of less than 150 on simvastatin 20 mg 1 a day Orders: Orders AMB Hemoglobin A1c Today - Type 2 diabetes mellitus with hyperglycemia Creatinine Urine 6 Months - Type 2 diabetes mellitus with hyperglycemia Thyroid Stimulating Hormone 6 Months . - Type 2 diabetes mellitus with hyperglycemia Vitamin B12 and Folate 6 Months . - Type 2 diabetes mellitus with hyperglycemia Complete Blood Count Auto Diff 6 Months - Type 2 diabetes mellitus with hyperglycemia Comprehensive Met. Panel 6 Months . - Type 2 diabetes mellitus with hyperglycemia Lipid Panel 6 Months E11. - Type 2 diabetes mellitus with hyperglycemia, E78.00 - Pure hypercholesterolemia, unspecified Prostate Specific Antigen Scr 6 Months . - Type 2 diabetes mellitus with hyperglycemia Free T4 (Free Thyroxine) 6 Months . - Type 2 diabetes mellitus with hyperglycemia Hemoglobin A1c 6 Months E11. - Type 2 diabetes mellitus with hyperglycemia Microalbumin, Random (w Creat) 6 Months E11.65 - Type 2 diabetes mellitus with hyperglycemia Coding Level of Care Code Est Pt Level 4 (30586) Diagnoses Type 2 diabetes mellitus with hyperglycemia, without long-term current use of insulin E11.65 Diabetes mellitus ad terminal makeup operator insulin use: without ad terminal makeup operator use Autism F84.0 Essential hypertension I10 Hypertension type: essential hypertension Hypercholesterolemia E78.00
[2023-10-02 14:35] VITALS: BP 136/80
== END 2023-10-02 14:47 | disposition home or self-care (01) ==
PROVIDERS: PCP Internal Medicine; Visit Provider Internal Medicine
DX: E11.65 Type 2 diabetes mellitus with hyperglycemia (principal); F84.0 Autistic disorder; I10 Essential (primary) hypertension; E78.00 Pure hypercholesterolemia, unspecified
CPT/HCPCS: 83036; 99214

== ENCOUNTER 2023-10-09 10:56 | Outpatient (AMB) | payer MEDICARE, MEDICAID, SELFPAY ==
[2023-10-09 12:28] VITALS: BP 134/80; PULSE 64; TEMP 36.7; O2SAT 96; BMI 23.2
--- NOTE | 2023-10-09 12:28 | MHC.OFFWIV ---
Intake Vital Signs 10/09/23 12:28 Height 5 ft 4 in Weight 135 lb BMI 23.2 BP 134/80 Blood Pressure Location Lt brachial Position Sitting Pulse 64 Pulse Source Pulse Oximeter Temp 98.0 F Temp Source Temporal Artery Scan Pulse Oximetry (%) 96 Oxygen Delivery Method Room Air Intake Visit Reasons: EP face red eye swollen Intake Note: pt is here today for face red eye swollen started yesterday Patient Tobacco Use Status: Never used Tobacco Allergies benztropine Adverse Reaction (Intermediate, Uncoded 10/02/23 14:14) rash Do you need a note to return to daycare/school/sports/work: No HPI HPI Comments History of Present Illness Details 62 y/o male patient who presents to walk in clinic with c/o rash and redness on face that started this morning. Pt is mentally disabled and lives in a residential. Pt presents with attending ambulatory care who provides history. Rash is itchy and redness. [facility] Medical History (Updated 10/02/23 @ 14:32 by Kathleen Clarke MD) Colon cancer screening Impulse control disease Urinary incontinence Hypercholesterolemia Dementia Obsessive compulsive disorder Autism Hypertension Type 2 diabetes mellitus with hyperglycemia TIA (transient ischemic attack) Surgical History (Updated 09/11/22 @ 12:44 by Julia Bolton RN) Hx of colonoscopy Hx of hemorrhoidectomy Family History Father Medical history unknown Mother Medical history unknown Sister No problems noted. Social History Housing: Apartment Alcohol intake: never Patient Tobacco Use Status: Never used Tobacco e-Cigarette/Vaping Use: Never Used Second Hand Smoke Exposure: No service: No Current occupational status: disabled Cognitive needs: Yes Hearing needs: Yes (hearing aides) Vision needs: No Review of Systems Const All systems reviewed & are unremarkable except as noted in HPI and below Physical Exam Vital Signs: Last Vital Signs Temp 98.0 F 10/09/23 12:28 Pulse 64 10/09/23 12:28 BP 134/80 10/09/23 12:28 Pulse Ox 96 10/09/23 12:28 Oxygen Delivery Method Room Air 10/09/23 12:28 BMI result Body Mass Index 23.2 Const General: comfortable and no acute distress Limitations: altered mental status Skin General skin exam: erythema Rashes: rashes noted (Patches of redness located on the nose boarders) Assessment & Plan Assessment & Plan (1) Contact dermatitis and eczema: Code(s): L25.9 - Unspecified contact dermatitis, unspecified cause Plan: - Apply medication as directed. - Keep skin clean and dry Medications: New cetirizine (Zyrtec) 10 mg PO DAILY 30 caps 0RF L25.9 - Unspecified contact dermatitis, unspecified cause triamcinolone acetonide 0.5% 1 appl topical BID 14 days 15 grams 0RF L25.9 - Unspecified contact dermatitis, unspecified cause Coding Level of Care Code Est Pt Level 3 (09951) Diagnoses Contact dermatitis and eczema L25.9 Time Spent (min) 15
== END 2023-10-09 15:55 | disposition home or self-care (01) ==
PROVIDERS: PCP Internal Medicine; Visit Provider Nurse Practitioner Family
DX: L25.9 Unspecified contact dermatitis, unspecified cause (principal)
CPT/HCPCS: 99213

== ENCOUNTER 2024-01-22 13:27 | Outpatient (REF) | payer MEDICARE, MEDICAID, SELFPAY ==
--- NOTE | ~2024-01-22 | MM_ITS ---
EXAMINATION: BONE DENSITOMETRY CLINICAL INDICATION: Age-related osteoporosis without current pathological fracture. COMPARISON: This is the patient's baseline examination. TECHNIQUE: Using a SAVORTEX DXA System (software version: 13.1) manufactured by [employer], dual-energy x-ray absorptiometry was performed of the lumbar spine and left hip. The images are of good technical quality. Summary results are attached. FINDINGS: LEFT FEMUR, NECK: BMD 0.464 g/cm2, Z-score -3.3, T-score -4.7, osteoporosis. LEFT FEMUR, TOTAL: BMD 0.568 g/cm2, Z-score -2.8, T-score -3.7, osteoporosis. AP SPINE L1-L4: BMD 0.974 g/cm2, Z-score -1.1, T-score -2.0, osteopenia. IDENTIFIED RISK FACTORS: Dementia. HISTORY OF FRACTURE: None listed. MEDICATIONS: None listed. MM/XR DEXA axial skeleton IMPRESSION: 1. DIAGNOSIS: Osteoporosis based on the lowest T-score value of -4.7 in the femoral neck applying World Health Organization criteria. 2. 10-YEAR FRACTURE RISK PREDICTION, FRAX: According to the guidelines, FRAX calculation should only be performed on patients in the osteopenia bone density category. Therefore, FRAX was not performed on this patient. 3. Treatment Recommendations: NOF guidelines recommend consideration for treatment in postmenopausal women and men age 50 and older presenting with the following: -A hip or vertebral (clinical or morphometric) fracture. -T-score less than or equal to -2.5 at the femoral neck or spine after appropriate evaluation to exclude secondary causes. -Low bone mass at the hip or spine and a 10-year fracture probability by FRAX of greater than or equal to 3% for hip fracture or greater than or equal to 20% for major osteoporotic fracture based on the [place] adapted WHO algorithm. 4. Other Recommendations: All treatment decisions require clinical judgment and consideration of individual patient factors, including patient preferences, comorbidities, previous drug use, risk factors not captured in the FRAX model (e.g. frailty, falls, vitamin D deficiency, increased bone turnover, interval significant decline in bone density) and possible under or overestimation of fracture risk by FRAX. Additional medical evaluation for secondary cause of low bone mineral density may be appropriate. FUTURE SCAN RECOMMENDATION: People with diagnosed cases of osteoporosis or at high risk for fracture should have regular bone mineral density tests. For patients eligible for Medicare, routine testing is allowed once every 2 years. The testing frequency can be increased to one year for patients who have rapidly progressing disease, those who are receiving or discontinuing medical therapy to restore bone mass, or have additional risk factors.
== END 2024-01-22 13:28 | disposition home or self-care (01) ==
LOC: HO.MAMMO 13:27
PROVIDERS: PCP Internal Medicine; Visit Provider Internal Medicine
DX: Z13.820 Encounter for screening for osteoporosis (principal); M81.0 Age-related osteoporosis without current pathological fracture; F84.0 Autistic disorder
CPT/HCPCS: 77080

== ENCOUNTER 2024-02-15 14:25 | Outpatient (REF) | payer MEDICARE, MEDICAID, SELFPAY ==
--- NOTE | 2024-02-16 08:04 | MHC.AU.HA3 ---
Hearing Instrument Follow-Up- Binaural Date of Visit: 02/15/24 Right Ear: Caleb, Model, Color, Serial Number: [id number] SN: [id number] Color: White Public Health Dietitian Repair Warranty: 01/30/2024 Public Health Dietitian Loss and Damage Warranty: 01/30/2024 [facility] Service Plan: 01/29/2022 Battery Size: Rechargeable Economics Instructor/Slim Tube: 1 slim tube Earmold/Dome/CShell/SlimTip:Microsonic M2000 Skeleton-style, clear, medium vent, made to fit slim tube Dispensed By: [facility] Date of Fittin11/14/2020 Left Ear: Model Caleb, Color, Serial Number: [id number] SN: [id number] Color: White Public Health Dietitian Repair Warranty: 01/30/2024 Public Health Dietitian Loss and Damage Warranty: 01/30/2024 [facility] Service Plan: 01/29/2022 Battery Size: Rechargeable Economics Instructor/Slim Tube: 1 slim tube Earmold/Dome/CShell/SlimTip: Microsonic M2000 Skeleton-style, clear, medium vent, made to fit slim tube Dispensed By: [facility] Date of Fittin11/14/2020 Follow-Up Summary: Accompanied by smelting engineer, Abigail. Updated hearing test and routine hearing aid maintenance. Both hearing aids not working upon arrival. Tubes occluded with wax. Cleaned both hearing aids and ear molds. Vacuumed microphones. Ran through dehumidifier. Replaced tubing. Listening check demonstrated hearing aids are amplifying clearly. Provided green fishing line cleaning tool and demonstrated how to thread through slim tube to clean. No programming adjustments as hearing is relatively stable. Recommended follow up with PCP for right-sided cerumen removal. Recommendations: Hearing instrument follow-up or maintenance as needed. Please contact our clinic with any questions or concerns. Diagnosis Code(s): Primary Diagnosis: H90.3 Bilateral Sensorineural Hearing Loss Signature: Provider: Víctor Nath, CCC-A
== END 2024-02-15 14:26 | disposition home or self-care (01) ==
LOC: HO.SH 14:25
PROVIDERS: Visit Provider Internal Medicine
DX: Z01.118 Encounter for examination of ears and hearing with other abnormal findings (principal); H90.3 Sensorineural hearing loss, bilateral
CPT/HCPCS: 92557; 92567; 92593; 99499

== ENCOUNTER 2024-04-02 08:51 | Outpatient (REF) | payer MEDICARE, MEDICAID, SELFPAY ==
[2024-04-02 11:09] LABS: MANUAL DIFF FLAG NO
[2024-04-02 11:18] LABS: Basophils Percent Auto 0.6 % (0-2); Eosinophils Absolute Auto 0.1 X10*3/uL (0.0-0.4); Eosinophils Percent Auto 2.8 % (0-4); Hematocrit 42.3 % (42.0-52.0); Hemoglobin 14.6 g/dl (14.0-18.0); Imm Gran Abs Auto 0.04 X10*3/uL (0.00-0.03); Imm Gran Pct Auto 0.9 % (0.0-0.4); Lymphocytes Percent Auto 20.7 % (20-40); Mean Corpuscular HGB Conc 34.5 g/dl (31.0-36.0); Mean Corpuscular Volume 83.9 fL (80.0-98.0); Mean Platelet Volume 9.3 fL (9.4-12.4); Monocytes Absolute Auto 0.4 X10*3/uL (0.1-1.2); Monocytes Percent Auto 8.8 % (2-11); Neutrophils Absolute Auto 3.1 x10*3/uL (2.0-8.3); Neutrophils Percent Auto 66.2 % (45-73); Platelet Count 143 X10*3/uL (160-400); Red Blood Count 5.04 X10*6/uL (4.60-5.80); Red Cell Distribution Width 13.8 % (11.0-16.0); White Blood Count 4.6 X10*3/uL (4.8-10.8)
[2024-04-02 11:37] LABS: Alanine Aminotransferase 12 U/L (0-40); Alkaline Phosphatase 78 U/L (39-117); Anion Gap 13 (12-20); Aspartate Amino Transferase 12 U/L (5-37); Bilirubin Total 0.7 mg/dL (0.0-1.0); Blood Urea Nitrogen 10 mg/dL (9-16); Calcium 9.3 mg/dL (8.4-10.2); Carbon Dioxide 27 mmol/L (22-29); Chloride 107 mmol/L (96-108); Cholesterol 103 mg/dL (<200); Estimated Glomerular Filt Rate > 60; Glucose Random 114 mg/dL (60-115); HDL Cholesterol 35 mg/dL (>40); LDL Cholesterol Calculated 54 mg/dL (<100); Sodium 143 mmol/L (135-145); Total Protein 6.2 g/dL (6.5-8.0); Triglycerides 71 mg/dL (<150)
[2024-04-02 11:42] LABS: Estimated Average Glucose 103 mg/dL; Hemoglobin A1c % 5.2 % (<6.0)
[2024-04-02 11:59] LABS: Free T4 (Free Thyroxine) 0.85 ng/dL (0.71-1.85); Thyroid Stimulating Hormone 1.61 uIU/mL (0.32-4.0)
[2024-04-02 12:04] LABS: Folate 6.6 ng/mL (> or = 4.0); Prostate Specific Antigen Scr 0.88 ng/mL (<0.05-4.0); Vitamin B12 547 pg/mL (200-900)
== END 2024-04-02 08:52 | disposition home or self-care (01) ==
LOC: HO.HMGCLDS 08:51
PROVIDERS: PCP Internal Medicine; Visit Provider Internal Medicine
DX: E11.65 Type 2 diabetes mellitus with hyperglycemia (principal); E78.00 Pure hypercholesterolemia, unspecified; Z12.5 Encounter for screening for malignant neoplasm of prostate
CPT/HCPCS: 36415; 80053; 80061; 82607; 82746; 83036; 84153; 84439; 84443; 85025

== ENCOUNTER 2024-04-05 13:46 | Outpatient (AMB) | payer MEDICARE, MEDICAID, SELFPAY ==
[2024-04-05 13:55] VITALS: BP 134/74; PULSE 55; O2SAT 99; BMI 22.0
--- NOTE | 2024-04-05 13:55 | MHC.PC.OV ---
Vital Signs 04/05/24 13:55 Height 5 ft 4 in Weight 128 lb BMI 22.0 BP 134/74 Blood Pressure Location Lt brachial Position Sitting Pulse 55 Pulse Source Pulse Oximeter Pulse Oximetry (%) 99 Oxygen Delivery Method Room Air Intake Visit Reasons: Annual Exam Maintenance Representative Required: No Allergies benztropine Adverse Reaction (Intermediate, Uncoded 04/05/24 13:55) rash Medication List - Last Reconciled 04/05/24 by Kathleen Clarke MD aripiprazole 2 mg PO DAILY aripiprazole 5 mg PO DAILY aspirin (Adult Aspirin Regimen) 81 mg PO DAILY cetirizine (Zyrtec) 10 mg PO DAILY clonazepam 0.5 mg PO BID PRN [DIABETIC SNEAKERS As directed] docusate sodium 100 mg PO BID fluoxetine 20 mg PO DAILY fluticasone propionate 50 mcg/actuation (Flonase Allergy Relief) 1 spray intranasal DAILY lisinopril 5 mg PO QAM polyethylene glycol 3350 (Miralax) 238 grams PO ONCE propranolol 20 mg PO BID simvastatin 20 mg PO BEDTIME triamcinolone acetonide 0.5% 1 appl topical BID 14 days [twin size bed rail As directed] Tobacco use date assessed: 10/02/23 Dental Screening Dental Screen Date: 10/02/23 HPI Annual Exam HPI Details 63-year-old autistic male with a history of hypertension hypercholesterolemia , history of CVA 16 years ago with facial droop and slurred speech. and diabetes mellitus. Since the patient has lost a lot of weight patient's diabetes has been under control. Patient was last seen in October 2023. Patient is here for an annual well visit. Patient is up-to-date with Cologuard testing in October 2022. Review of the notes has been seen by Neurology in 02/20/2024 for tremors drug-induced dyskinesia plus parkinsonism [facility] Medical History (Updated 04/05/24 @ 14:35 by Katlheen Clarke MD) Colon cancer screening Impulse control disease Urinary incontinence Hypercholesterolemia Dementia Obsessive compulsive disorder Autism Hypertension Type 2 diabetes mellitus with hyperglycemia TIA (transient ischemic attack) Surgical History (Updated 09/11/22 @ 12:44 by Julia Bolton RN) Hx of colonoscopy Hx of hemorrhoidectomy Family History Father Medical history unknown Mother Medical history unknown Sister No problems noted. Social History Housing: Apartment Alcohol intake: never Patient Tobacco Use Status: Never used Tobacco Tobacco use type: Cigarette e-Cigarette/Vaping Use: Never Used Second Hand Smoke Exposure: No service: No Current occupational status: disabled Cognitive needs: Yes Hearing needs: Yes (hearing aides) Vision needs: No Questionnaire PHQ-9 Over the last 2 weeks, how often have you been bothered by any of the following problems? 1. Little interest or pleasure in doing things: not at all 3. Trouble falling or staying asleep, or sleeping too much: not at all 4. Feeling tired or having little energy: not at all 5. Poor appetite or overeating: not at all 6. Feeling bad about yourself - or that you are a failure or have let yourself or your family down: not at all 7. Trouble concentrating on things, such as reading the newspaper or watching television: nearly every day 8. Moving or speaking so slowly that other people could have noticed. Or the opposite - being so fidgety or restless that you have been moving around a lot more than usual: not at all 9. Thoughts that you would be better off or of hurting yourself in some way: not at all Source: Developed by Drs. Rafael Gonsales, Lilia Kate, Paco Barr and colleagues, with an educational pauline from [employer]. Thrive Questionnaire Date Thrive assessed: 04/05/24 I am a: Parent/Caregiver What is your living situation today?: I have a steady place to live Within the past 12 months, did the food you bought not last and you didn't have the money to get more?: I choose not to answer this question Within the past 12 months, did you worry whether your food would run out before you got money to buy more?: I choose not to answer this question Do you have trouble paying for medicines?: No Do you have trouble getting transportation to medical appointments?: No Do you have trouble paying your heating and electricity bill?: No Do you have trouble taking care of your child, family member or friend?: No Do you have trouble with day-to-day activities such as bathing, preparing meals, shopping, managing finances, etc.?: No Are you currently unemployed and looking for a job?: No Are you interested in more education?: No THRIVE Score: 0 MALIA-7 AMB Questionnaire MALIA-7 Date MALIA - 7 assessed: 10/02/23 Source: Developed by Drs. Rafael Gonsales, Lilia Kate, Paco Barr and colleagues, with an educational pauline from [employer]. Review of Systems Const Denies poor appetite and Denies weakness Eyes Denies no additional complaints ENT Reports Normal hearing present, Denies dizziness, Denies nasal congestion, Denies tinnitus and Denies sore throat Card Denies chest pain, Denies syncope, Denies rapid heart rate and Denies dyspnea Resp Denies cough and Denies dyspnea GI Denies change in stool character, Reports constipation, Denies diarrhea, Denies nausea and Denies vomiting Denies dysuria and Denies urinary frequency Neuro Reports Normal hearing present, Denies confusion, Denies dizziness, Denies syncope and Denies weakness Psych Denies confusion Physical exam (Primary Care) Vital Signs: Last Vital Signs Pulse 55 04/05/24 13:55 BP 134/74 04/05/24 13:55 Pulse Ox 99 04/05/24 13:55 Oxygen Delivery Method Room Air 04/05/24 13:55 BMI result Body Mass Index 22.0 Tobacco/Smoking Status: Tobacco use Status Tobacco use date assessed 10/02/23 04/05/24 14:02 Patient Tobacco Use Status Never used Tobacco 04/05/24 14:02 Tobacco use type Cigarette 04/05/24 14:02 e-Cigarette/Vaping Use Never Used 04/05/24 14:02 Thrive Assessment: Date of Thrive Assessment Date Thrive assessed 04/05/24 04/05/24 14:02 Const General: No confusion Orientation/consciousness: No confusion HENMT Other: R ear impacted cerumen, L N TM Head: Yes normocephalic Ears: external ears normal Face and sinus: Yes normal facial exam Mouth: moist mucous membranes Throat: Yes tonsils normal Eyes Conjunctivae: conjunctivae normal Pupils: Equal, round and reactive pupils present and Pupil accommodation reflex normal Direct Ophthalmoscopy: normal light reflex Neck Neck: No lymphadenopathy Thyroid: Thyroid normal Chest Chest palpation & inspection: normal inspection of the chest Resp Effort & Inspection: normal respiratory effort and no audible wheezes Auscultation: clear to auscultation bilaterally, no crackles, no wheezes and lung sounds not diminished Cardio Rate: regular rate Rhythm: regular rhythm Peripheral pulses: radial pulses present and dorsalis pedis present GI Other: guaiac neg prosate N Palpation (GI): no masses Auscultation: normal bowel sounds and normoactive bowel sounds Male General Exam: Yes normal external exam Skin General skin exam: no rashes or lesions noted Rashes: no rashes Neuro Other: lip smoaking with hand tremors General: No confusion Cranial nerves: Yes Equal, round and reactive pupils present and Yes Normal hearing present Cognition (Neuro): normal cognition Gait exam (Neuro): Normal gait present Motor exam (neuro): 5/5 motor strength present throughout Deep tendon reflexes (DTR's): Right brachioradialis reflex intensity grade: 2+, Left brachioradialis reflex intensity grade: 2+, Right patellar reflex intensity grade: 2+ and Left patellar reflex intensity grade: 2+ Extrem Other: pedal pulse N pin prick good bilateral leg foot General: No edema Immunizations tetanus-diphtheria toxoids-Td 2 Lf unit-2 Lf unit/0.5 mL IM suspension Performing Provider: Kathleen Clarke MD [facility] Administered by: Adilene Turcios CMA on 04/05/24 14:43 Dose Route Admin Location Dispensed Lot Number Expiration Date NDC Investigation Specialist 0.5 mL IM Left Deltoid 0.5 mL [id number] 09/12/24 [address]-3 [employer] VIS Given Date VIS Provided VIS Publication Date 04/05/24 Single Vaccine 21 Eligibility Eligibility Date Funding Source Not [facility] Eligible 04/05/24 [facility] funds Assessment and Plan Assessment & Plan (1) Annual physical exam: Code(s): Z00.00 - Encounter for general adult medical examination without abnormal findings Plan: Patient is advised to eat healthy, keep well hydrated, keep active and have adequate sleep. (2) Type 2 diabetes mellitus with hyperglycemia: Comment: Dr. Sawyer Code(s): E11.65 - Type 2 diabetes mellitus with hyperglycemia Qualifiers: Diabetes mellitus snf insulin use: without termite exterminator use Qualified Code(s): E11.65 - Type 2 diabetes mellitus with hyperglycemia Plan: Decrease the amount of carbohydrate intake, pasta, bread, rice and potatoes are all sugar and that is aside from all the sweet stuff, remember that fruits are good but they are Sweet also. Diet controlled (3) Hypercholesterolemia: Code(s): E78.00 - Pure hypercholesterolemia, unspecified Plan: Avoid fried foods, chicken skin, eggs, butter margarine, pastries and meat. Be it pork or beef they have a lot of cholesterol LDL goal of less than 100 and triglyceride of less than 150. On simvastatin 20 mg at bedtime (4) Hypertension: Code(s): I10 - Essential (primary) hypertension Qualifiers: Hypertension type: essential hypertension Qualified Code(s): I10 - Essential (primary) hypertension Plan: Continue with blood pressure medication. Decrease salt intake and exercise presently on propranolol 20 mg twice a day lisinopril 5 mg once a day (5) Autism: Code(s): F84.0 - Autistic disorder Plan: Continue to follow-up with psychiatry (6) Drug-induced dyskinesia: Code(s): G24.01 - Drug induced subacute dyskinesia Plan: Patient has met with Neurology and will discuss with psychiatry regarding testing. (7) Urinary incontinence: Code(s): R32 - Unspecified urinary incontinence (8) Impacted cerumen of right ear: Code(s): H61.21 - Impacted cerumen, right ear (9) Osteoporosis: Code(s): M81.0 - Age-related osteoporosis without current pathological fracture Orders: Orders Complete Blood Count Auto Diff 6 Months M81.0 - Age-related osteoporosis without current pathological fracture Testosterone, Total 6 Months M81.0 - Age-related osteoporosis without current pathological fracture Comprehensive Met. Panel 6 Months M81.0 - Age-related osteoporosis without current pathological fracture Hemoglobin A1c 6 Months M81.0 - Age-related osteoporosis without current pathological fracture Medications: New [id number] 600 mg calcium- 800 unit-50 mg (Caltrate 600-D Plus Minerals) 1 tab PO BID 60 tabs 3RF M81.0 - Age-related osteoporosis without current pathological fracture Coding Level of Care Code Est Pt Prev Care 40-64y(82056) Diagnoses Annual physical exam Z00.00 Type 2 diabetes mellitus with hyperglycemia, without long-term current use of insulin E11.65 Diabetes mellitus termite exterminator insulin use: without termite exterminator use Hypercholesterolemia E78.00 Essential hypertension I10 Hypertension type: essential hypertension Autism F84.0 Drug-induced dyskinesia G24.01 Urinary incontinence R32 Impacted cerumen of right ear H61.21 Osteoporosis M81.0
== END 2024-04-05 14:50 | disposition home or self-care (01) ==
PROVIDERS: PCP Internal Medicine; Visit Provider Internal Medicine
DX: Z00.00 Encounter for general adult medical examination without abnormal findings (principal); E11.65 Type 2 diabetes mellitus with hyperglycemia; E78.00 Pure hypercholesterolemia, unspecified; Z23 Encounter for immunization; I10 Essential (primary) hypertension; F84.0 Autistic disorder; G24.01 Drug induced subacute dyskinesia; R32 Unspecified urinary incontinence; H61.21 Impacted cerumen, right ear; M81.0 Age-related osteoporosis without current pathological fracture
CPT/HCPCS: 90471; 90714; 99396

== ENCOUNTER 2024-09-19 10:41 | Emergency (ER) | payer MEDICARE, MEDICAID, SELFPAY ==
--- NOTE | ~2024-09-19 | CT_ITS ---
CLINICAL HISTORY: fall CT head without contrast Comparison: CT/SR - BRAIN WO IV CONTRAST [id number] - 03/20/16 13:58 EDT MR - MRI BRAIN WITHOUT CONT [id number] - 10/04/12 14:37 EST Findings: Exam significantly degraded from patient motion. Low-attenuation changes in the inferior frontal lobes greater to left appearing artifactual. Additional low-attenuation deep white matter changes suggesting chronic small vessel ischemia progressive from priors. No clearly acute alteration in the desouza-white matter interface. Mildly progressive involutional changes. No apparent hemorrhage, mass effect or extra-axial collection. Ventricles and sulci otherwise age-appropriate. No hydrocephalus. Skull intact. Mild mucoperiosteal thickening of the ethmoid sinuses. Remaining included paranasal sinuses and mastoids clear. Globes and orbits intact. Impression: Substantial motion artifact. No acute intracranial process evident. This document has been electronically signed by: Deangelo Goss MD on 09/19/2024 13:09:48
--- NOTE | ~2024-09-19 | XR_ITS ---
CLINICAL HISTORY: cough, fever Chest one view Comparison: 10/13/2012 Findings: Low lung volumes/submaximal inspiration slightly more pronounced than on prior. Resultant vascular congestion. No apparent edema, consolidation, pleural effusion or pneumothorax. Normal heart size and mediastinal contour accounting for projection. Bones intact. Upper abdomen unremarkable. Impression: No acute cardiopulmonary process. Low lung volumes. This document has been electronically signed by: Deangelo Goss MD on 09/19/2024 11:38:25
--- NOTE | ~2024-09-19 | CT_ITS ---
CLINICAL HISTORY: fall CT cervical spine without contrast Comparison: None Findings: No acute fracture or traumatic subluxation. Mild degenerative grade 1 retrolisthesis of C2 and C3. Otherwise cervical lordosis maintained. Normal vertebral body height and precervical soft tissue thickness. Generalized degenerative changes throughout. Partial sparing at C4-5. No marked mass effect on the thecal sac. No critical stenosis. Facet joints intact. No acute process evident in the included skull base structures, paracervical soft tissues or apical lungs. Impression: No acute fracture or traumatic subluxation. Generalized degenerative changes as noted. This document has been electronically signed by: Deangelo Goss MD on 09/19/2024 13:04:53
[2024-09-19 10:49] VITALS: BP 122/61; BP 127/60; PULSE 73; PULSE 79; RESP 18; TEMP 39.3; O2SAT 94; O2SAT 98; BMI 20.1
[2024-09-19 11:00] VITALS: TEMP 38.8
--- NOTE | 2024-09-19 11:02 | ECG_ITS ---
Test Reason : WEAKNESS Blood Pressure : */* mmHG Vent. Rate : 156 BPM Atrial Rate : 96 BPM P-R Int : * ms QRS Dur : 150 ms QT Int : 220 ms P-R-T Axes : * 206 182 degrees QTcB Int : 354 ms Possibly all artifact EKG not suitable for interpretation When compared with ECG of 03-Oct-2012 17:50, due to quality, cannot compare Referred By: Aubree Llanes Electronically Signed By: ANA BOURGEOIS
--- OUTSIDE RECORDS SUMMARY | 2024-09-19 11:14 | XMS_ITS | Clinical Summary ---
Author Organization [address] [facility] Address [address] [place] [address] Phone Care Team Providers Care Foreman/Project Manager Name Role Phone Kathleen Clarke MD Primary Care Provider [phone] Allergies No known active allergies Medications aspirin 81 mg EC tablet Take 81 mg by mouth daily. Active acetaminophen (TYLENOL 8 HOUR) 650 mg 8 hr tablet Take 650 mg by mouth every 6 hours as needed. Active ARIPiprazole (ABILIFY) 2 mg tablet Take 2 mg by mouth daily. Take at noon Active clonazePAM (KlonoPIN) 0.5 mg tablet Take 1 Tablet by mouth 2 times daily as needed. Active docusate sodium (COLACE) 100 mg capsule Take 100 mg by mouth 2 times daily. Active FLUoxetine (PROzac) 20 mg capsule Take 20 mg by mouth daily. Active fluticasone propionate (FLONASE) 50 mcg/actuation nasal spray 2 Sprays by Each Nare route daily. Active ketoconazole (NIZORAL) 2 % cream Apply to each toenail once daily, small amount 2 drops per toe PRN (as needed basis) 09/07/2018 Active lisinopriL (PRINIVIL,ZESTR IL) 5 mg tablet Take 5 mg by mouth every morning. Active propranoloL (INDERAL) 20 mg tablet Take 20 mg by mouth 2 times daily. Active simvastatin (ZOCOR) 20 mg tablet Take 20 mg by mouth at bedtime. Active Active Problems Problem Noted Date Diagnosed Date Depression 12/01/2017 Anxiety 12/01/2017 Hyperlipidemia 12/01/2017 Hypertension 12/01/2017 Diabetes mellitus type 2, diet-controlled 2015 Hammer toe of right foot 04/17/2016 Medical History Medical History Date Comments Diabetes mellitus type 2, di et-controlled ([facility]) 04/17/2016 DX:Diabetes mellitus type 2, diet-controlled (HCC) Hyperlipidemia DX:Hyperlipidemi a Hypertension DX:Hypertension CAD (coronary artery disease) DX :CAD (coronary artery disease) Social History Tobacco Use Types Packs/Day Years Used Date Smoking Tobacco: Never Smokeless Tobacco: Never Alcohol Use Standard Drinks/Week Comments Not Asked 0 (1 standard drink = 0.6 oz pur e alcohol) Sex and Gender Information Value Date Recorded Sex Assigned at Not on file Legal Sex Male 3:27 PM EST Gender Identity Not on file Sexual Orientation Not on file Obstetrics History Last Filed Vital Signs Vital Sign Reading Time Taken Comments Blood Pressure 125/84 09/17/2022 2:44 PM EST Pulse 72 09/17/2022 2:44 PM EST Temperature - - Respiratory Rate - - Oxygen Saturation - - Inhaled Oxygen Concentration - - Weight 67.6 kg (149 lb) 04/07/2024 10:25 AM EDT Height 157.5 cm (5' 2 ) 04/07/2024 10:25 AM EDT Body Mass Index 27.25 04/07/2024 10:25 AM EDT Plan of Treatment Upcoming Encounters Date Type Department Care Team (Late st Contact Info) Description 10/19/2024 2:45 PM EDT Office Visit Orthopedic Surgery - [place] [id number] [phone] Gilberto Francois, DPM [address] [address] Health Maintenance Due Date Last Done Comments Diabetes: Annual GFR (Glomer ular Filtration Rate) 1960 Diabetes: Annual Foot Exam 1970 Diabetes: Annual Retina Eye Exam 1970 DTaP,Tdap,and Td Vaccines (1 - Tdap) 10/14/1979 Pneumococcal Vaccine: 50+ Ye ars (1 of 2 - PCV) 10/14/1979 Pneumococcal Vaccine: Pediat rics (0 to 5 Years) and At-Risk Patients (6 to 64 Years) (1 of 2 - PCV) 10/14/1979 Zoster Vaccines (1 of 2) 2010 Cholesterol Screening (Lipid Panel) 07/12/2022 Colorectal Cancer Screening: Colonoscopy 07/12/2022 Depression Screening 07/12/2022 HIV Screening 07/12/2022 Hepatitis C Screening 07/12/2022 Medicare Annual Wellness Visit 07/12/2022 Social Influencers of Health Screening 07/12/2022 Diabetes: Annual Urine Albumin-Creatinine Ratio (uACR) 07/18/2022 Diabetes: Blood Sugar Contro l Test (HGBA1C) 07/18/2022 Hypertension/CHF/CAD Annual BMP Blood Test 07/18/2022 COVID-19 Vaccine ( - 2023-2 5 season) 2024 Influenza Vaccine (#1) 2024 RSV Immunization Patients 60 + Years Old (1 - 1-dose 75+ series) 10/14/2035 HIB Vaccines Aged Out No longer eligi ble based on patient's age to complete this topic HPV Vaccines Aged Out No longer eligi ble based on patient's age to complete this topic Hepatitis A Vaccines Aged Out No long er eligible based on patient's age to complete this topic Hepatitis B Vaccines Aged Out No long er eligible based on patient's age to complete this topic IPV Vaccines Aged Out No longer eligi ble based on patient's age to complete this topic MMR Vaccines Aged Out No longer eligi ble based on patient's age to complete this topic Meningococcal ACWY Vaccine Aged Out N o longer eligible based on patient's age to complete this topic Meningococcal B Vacine Aged Out No lo nger eligible based on patient's age to complete this topic RSV Immunization Patients Un [place] 20 months Aged Out No longer eligible b ased on patient's age to complete this topic Varicella Vaccines Aged Out No longer eligible based on patient's age to complete this topic Insurance MEDICAID - [place] MEDICARE Care Teams Foreman/Project Manager Relationship Specialty Start Date End Date Kathleen Clarke MD [address] [place] [address] [address] [facility] [place] [address] PCP - General Internal Medicine 02/05/16
[2024-09-19 11:21] LABS: MANUAL DIFF FLAG NO
[2024-09-19 11:24] LABS: Basophils Percent Auto 0.4 % (0-2); Eosinophils Percent Auto 0.4 % (0-4); Hematocrit 40.7 % (42.0-52.0); Hemoglobin 14.2 g/dl (14.0-18.0); Imm Gran Abs Auto 0.03 X10*3/uL (0.00-0.03); Imm Gran Pct Auto 0.6 % (0.0-0.4); Lymphocytes Absolute Auto 0.2 X10*3/uL (1.2-4.9); Lymphocytes Percent Auto 4.6 % (20-40); Mean Corpuscular HGB Conc 34.9 g/dl (31.0-36.0); Mean Corpuscular Hemoglobin 29.6 pg (27.0-33.0); Mean Platelet Volume 9.1 fL (9.4-12.4); Monocytes Absolute Auto 0.6 X10*3/uL (0.1-1.2); Monocytes Percent Auto 12.2 % (2-11); Neutrophils Absolute Auto 3.9 x10*3/uL (2.0-8.3); Neutrophils Percent Auto 81.8 % (45-73); Platelet Count 102 X10*3/uL (160-400); Red Blood Count 4.79 X10*6/uL (4.60-5.80); White Blood Count 4.8 X10*3/uL (4.8-10.8)
[2024-09-19 11:25] LABS: Venous Blood Gas Refer to POC result
[2024-09-19] MEDS: LACTATED RINGERS 1803 ML IV (11:25)
[2024-09-19 11:26] LABS: VBG Base Excess 6.2 mmol/L; VBG HCO3 32 mmol/L (22-26); VBG pCO2 50 mmHg; VBG pO2 29 mmHg
[2024-09-19] MEDS: Acetaminophen 1,000 MG/100 ML PIGGYBACK 400 MG IV (11:26)
[2024-09-19] MEDS: cefTRIAXone sodium 1 GM VIAL IVPUSH (11:28)
--- NOTE | 2024-09-19 11:30 | MHC.EDTECH ---
EKG cancelled by provider
[2024-09-19 11:38] LABS: Lactic Acid 1.1 mmol/L (0.5-2.0)
[2024-09-19 11:42] LABS: B Type Natriuretic Peptide 156 pg/mL (<100)
[2024-09-19 11:44] LABS: Alanine Aminotransferase 10 U/L (0-40); Alkaline Phosphatase 73 U/L (39-117); Anion Gap 11 (12-20); Aspartate Amino Transferase 21 U/L (5-37); Bilirubin Direct 0.4 mg/dL (0.0-0.5); Blood Urea Nitrogen 13 mg/dL (9-16); C Reactive Protein 1.04 mg/dL (< or = 0.50); Calcium 8.8 mg/dL (8.4-10.2); Carbon Dioxide 27 mmol/L (22-29); Chloride 104 mmol/L (96-108); Creatinine Clr Calc Pharmacy 68.3; Estimated Glomerular Filt Rate > 60; Glucose Random 140 mg/dL (60-115); Lipase 14 U/L (8-78); Magnesium 1.7 mg/dL (1.6-2.6); Potassium 4.1 mmol/L (3.3-5.1); Sodium 138 mmol/L (135-145); Total Protein 6.3 g/dL (6.5-8.0); Troponin-I High Sensitivity 14.1 ng/L (<3.5-35.0)
[2024-09-19 11:46] LABS: Appearance Urine Clear; Color Urine Dark Yellow; Glucose Urine UA 100 mg/dL (Negative); Leukocyte Esterase Urine Negative (Negative); Nitrite Urine Negative (Negative); Specific Gravity - Urine >= 1.030 (1.005-1.025); UMIC TRIGGER UACC YES; Urine Blood Small (1+) (Negative); Urine Ketones 15 mg/dL (Negative); Urine Protein 30 (1+) mg/dL (Neg-Trace)
--- NOTE | 2024-09-19 11:47 | ED_ITS ---
HPI - Weakness General Chief complaint: Weakness Stated complaint: L SIDED WEAKNESS Time Seen by Provider: 09/19/24 10:42 Source: patient, family and EMS Mode of arrival: EMS Limitations: other (poor cognition) History of Present Illness ED Provider: ANDRES DELACRUZ Narrative: 63 yo male with PMH of tremors, drug induced dyskinesias, TIA, DM2, autism, dementia, HTN, OCD not on blood thinners. He does walk at home. He was found by his caregiver today and he seemed to be more weak and stated he couldn't get up. She also noted a contusion on his head which is new he states he might have fallen but it is not clear. He states he has a dry cough and that is the only thing that is bothering him. He arrived febrile and with tremors. Complaint: generalized weakness Onset (ago): day(s) (1) Duration: constant Location: generalized Migration: none Severity: moderate Relieving factors: none Exacerbating factors: movement Associated symptoms: loss of appetite and other (cough) Related Data Home Medications ?Medication ?Instructions ?Recorded ?Confirmed fluoxetine 20 mg tablet 20 mg PO DAILY 09/10/20 04/05/24 clonazepam 0.5 mg tablet 0.5 mg PO BID PRN Anxiety 05/30/22 04/05/24 aripiprazole 2 mg tablet 2 mg PO DAILY 04/05/24 04/05/24 aripiprazole 5 mg tablet 5 mg PO DAILY 04/05/24 04/05/24 Previous Rx's ?Medication ?Instructions ?Recorded DIABETIC SNEAKERS #1 ea 02/05/22 polyethylene glycol 3350 17 238 g PO ONCE #238 grams 05/30/22 gram/dose oral powder (Miralax) fluticasone propionate 50 1 spray intranasal DAILY #16 grams 09/19/23 mcg/actuation nasal spray,suspension (Flonase Allergy Relief) cetirizine 10 mg capsule (Zyrtec) 10 mg PO DAILY #30 caps 10/09/23 triamcinolone acetonide 0.5 % 1 appl topical BID 14 days #15 10/09/23 topical cream grams aspirin 81 mg tablet,delayed 81 mg PO DAILY #90 tabs 12/24/23 release (Adult Aspirin Regimen) twin size bed rail #1 ea 01/22/24 docusate sodium 100 mg capsule 100 mg PO BID #180 caps 03/17/24 simvastatin 20 mg tablet 20 mg PO BEDTIME #90 tabs 07/07/24 lisinopril 5 mg tablet 5 mg PO QAM #90 tabs 08/04/24 propranolol 20 mg tablet 20 mg PO BID #180 tabs 08/04/24 oseltamivir 75 mg capsule (Tamiflu) 75 mg PO BID 5 days #9 caps 09/19/24 Allergies Allergy/AdvReac Type Severity Reaction Status Date / Time benztropine AdvReac Intermediate rash Uncoded 09/19/24 10:52 Review of Systems 2 Review of Systems: ROS unable to be obtained due to poor historian PMFSH Past Medical History Attestation statement: The following information was validated with the patient. Source: old records reviewed Medical History Colon cancer screening Impulse control disease Urinary incontinence Hypercholesterolemia Dementia Obsessive compulsive disorder Autism Hypertension Type 2 diabetes mellitus with hyperglycemia TIA (transient ischemic attack) Surgical History Hx of colonoscopy Hx of hemorrhoidectomy Family History Family History Father Medical history unknown Mother Medical history unknown Sister No problems noted. Social History Social History Housing: Apartment Alcohol intake: never Patient Tobacco Use Status: Never used Tobacco Tobacco use type: Cigarette Smoked in Last 30 Days: No e-Cigarette/Vaping Use: Never Used Second Hand Smoke Exposure: No Use of substances other than those prescribed or required for medical reasons: No Advance Directives: No Advance Directives Information Provided: Yes Do you have a plan to hurt others: No Plan service: No Current occupational status: disabled Cognitive needs: Yes Hearing needs: Yes (hearing aides) Vision needs: No Physical Exam 2 Vital Signs: Vital Signs: Last Vital Signs Temp 100.6 F H 09/19/24 16:09 Pulse 66 09/19/24 16:09 Resp 18 09/19/24 16:09 BP 125/84 09/19/24 16:09 Pulse Ox 96 09/19/24 16:09 O2 Del Method Room Air 09/19/24 16:09 BMI result Body Mass Index 20.1 Appearance: Alert. Oriented X to person and place. No acute distress. active upper ext tremors and facial movements baseline per staff Eyes: Pupils equal, round and reactive to light. ENT: Pharynx dry MM, contusion R parietal scalp Neck: Normal inspection. Neck supple. CVS: Normal heart rate and rhythm. Pulses normal. Respiratory: No respiratory distress. Breath sounds slightly diminished but no wheezes Abdomen: Soft and non-tender. : normal exam Skin: Skin warm and dry. Normal skin color. Normal skin turgor. Extremities: No lower extremity edema. No calf ttp Neuro: Oriented [address] no obvious motor deficits able to lift and raise legs without issue, sensation intact, no facial droop NIH Stroke Scale Internal: Initial- Upon Arrival Level of Consciousness: Alert Level of Consciousness Questions: Answers both questions correctly Level of Consciousness Commands: Performs both tasks correctly Best Gaze: Normal Visual: No visual loss Facial Palsy: Normal Motor Arm (Right): No drift Motor Arm (Left): No drift Motor Leg (Right): No drift Motor Leg (Left): No drift Limb Ataxia: Absent Sensory: Normal Best Language: No aphasia Dysarthia: Normal Extinction and Inattention: No abnormality Score: 0 Course Course Course Narrative: looks better no hypoxia normal BP he is at his baseline has not had any L sided weakness and [employer] just reported diffuse weakness Medications Administered Discontinued Medications Generic Name Dose Route Start Last Admin Trade Name Bossman PRN Reason Stop Dose Admin Ceftriaxone Sodium 1 gm 09/19/24 11:01 09/19/24 11:28 Ceftriaxone Sodium 1 Gm Vial IVPUSH 09/19/24 11:02 1 gm ONCE ONE Administration Acetaminophen 1,000 mg in 100 mls @ 400 mls/hr 09/19/24 11:01 09/19/24 12:46 Ofirmev IV 09/19/24 11:15 Infused ONCE ONE Infusion Lactated Ringer's 1,803 mls @ 1,803 mls/hr 09/19/24 11:01 09/19/24 12:15 Lr 30 ml/kg infuse over 1 hr (1803 ml) 09/19/24 12:00 Infused IV Infusion .Q1H ONE Oseltamivir Phosphate 75 mg 09/19/24 14:44 09/19/24 15:41 Oseltamivir Phosphate 75 Mg Capsule PO 09/19/24 14:45 75 mg ONCE ONE Administration Medical Decision Making Medical Decision Making MDM Narrative: 63 yo male with PMH of tremors, drug induced dyskinesias, TIA, DM2, autism, dementia, HTN, OCD not on blood thinners now here with signs of possible fall and contusion on scalp, fevers with cough at this time no other history reported he will need IVF, IV ceftriaxone empirically, CXR and UA for infection, flu swab, empiric labs/lactic acid/cultures. I do not see any L sided signs of stroke on arrival at this time. Differential Diagnosis Differential Diagnoses: The differential diagnosis associated with the presentation includes pneumonia, flu, UTI Admission/Observation Consideration of admission/observation: Escalation of care including admission/observation considered Lab Data [facility] Lab Attestation statement: I reviewed the patient's lab results. 09/19/24 11:15 09/19/24 11:15 Labs: Lab Results 09/19/24 09/19/24 09/19/24 Range/Units 11:15 11:20 11:37 WBC 4.8 (4.8-10.8) X10*3/uL RBC 4.79 (4.60-5.80) X10*6/uL Hgb 14.2 (14.0-18.0) g/dl Hct 40.7 L (42.0-52.0) % MCV 85.0 (80.0-98.0) fL MCH 29.6 (27.0-33.0) pg MCHC 34.9 (31.0-36.0) g/dl RDW 14.0 (11.0-16.0) % Plt Count 102 L D (160-400) X10*3/uL MPV 9.1 L (9.4-12.4) fL Immature Gran % (Auto) 0.6 H (0.0-0.4) % Neut % (Auto) 81.8 H (45-73) % Lymph % (Auto) 4.6 L (20-40) % [place] % (Auto) 12.2 H (2-11) % Eos % (Auto) 0.4 (0-4) % Baso % (Auto) 0.4 (0-2) % Lymph # (Auto) 0.2 L (1.2-4.9) X10*3/uL [place] # (Auto) 0.6 (0.1-1.2) X10*3/uL Eos # (Auto) 0.0 (0.0-0.4) X10*3/uL Baso # (Auto) 0.0 (0.0-0.2) X10*3/uL Abs Immat Gran (auto) 0.03 (0.00-0.03) X10*3/uL Absolute Neuts (auto) 3.9 (2.0-8.3) x10*3/uL Absolute Nucleated RBC 0.000 (0.0-0.012) X10*3/uL Nucleated RBC % (auto) 0.0 (0.0-0.2) /100WBC VBG pH 7.40 (7.32-7.43) VBG pCO2 50 mmHg VBG pO2 29 mmHg VBG HCO3 32 H (22-26) mmol/L VBG O2 Saturation 40.0 % VBG Base Excess 6.2 mmol/L Sodium 138 (135-145) mmol/L Potassium 4.1 (3.3-5.1) mmol/L Chloride 104 (96-108) mmol/L Carbon Dioxide 27 (22-29) mmol/L Anion Gap 11 L (12-20) BUN 13 (9-16) mg/dL Creatinine 0.94 (0.5-1.4) mg/dL Estim Creat Clear Calc 68.3 Estimated GFR > 60 Random Glucose 140 H (60-115) mg/dL Lactic Acid 1.1 (0.5-2.0) mmol/L Calcium 8.8 (8.4-10.2) mg/dL Magnesium 1.7 (1.6-2.6) mg/dL Total Bilirubin 1.0 (0.0-1.0) mg/dL Direct Bilirubin 0.4 (0.0-0.5) mg/dL AST 21 (5-37) U/L ALT 10 (0-40) U/L Alkaline Phosphatase 73 (39-117) U/L Troponin I High Sens 14.1 (<3.5-35.0) ng/L C-Reactive Protein 1.04 H (< or = 0.50) mg/dL B-Natriuretic Peptide 156 H (<100) pg/mL Total Protein 6.3 L (6.5-8.0) g/dL Albumin 4.0 (3.5-5.0) g/dL Lipase 14 (8-78) U/L Procalcitonin 0.04 ng/mL Urine Color Dark Yellow Urine Appearance Clear Urine pH 6.0 (5.0-9.0) Ur Specific [place] >= 1.030 H (1.005-1.025) Urine Protein 30 (1+) H (Neg-Trace) mg/dL Urine Glucose (UA) 100 H (Negative) mg/dL Urine Ketones 15 (Negative) mg/dL Urine Blood Small (1+) H (Negative) Urine Nitrite Negative (Negative) Ur Leukocyte Esterase Negative (Negative) Urine RBC 3-5 H (0-2) /HPF Urine WBC 6-10 H (0-5) /HPF Ur Squamous Epith Cells 0-2 (0-2) /HPF Urine Bacteria None Seen (None Seen) Hyaline Casts 3-5 (0-2) /LPF Influenza Type A (PCR) POSITIVE A (Negative) Influenza Type B (PCR) NEGATIVE (Negative) RSV RNA Qual (PCR) NEGATIVE (Negative) SARS-CoV-2 RNA (RT-PCR) NEGATIVE (Negative) Independent Interpretation I performed an independent interpretation of an: EKG and Plain X-Ray Interpretation: tried to get EKG but cannot due to tremors Radiology Impression Discussion of test interpretation with radiology: I have reviewed the radiologist's reading. Independent Historian Clinical information obtained from an independent historian. History obtained from or confirmed by: EMS and Other (caregiver) External Record Review External record reviewed: Inpatient record and Outpatient record Discharge Plan Discharge Clinical Impression: Influenza A Patient Disposition: Home, Self-Care Instructions: Influenza (ED) Additional Instructions: labs reassuring normal oxygen levels CT head and cervical spine no acute findings positive for flu return for any worsening symptoms such as unable to eat or drink, chest pain, confusion/change in mental status, trouble or labored breathing next dose of tamiflu tomorrow morning wear a mask and protect others, should not be left alone Prescriptions: New oseltamivir [Tamiflu] 75 mg capsule 75 mg PO BID 5 Days Qty: 9 0RF No Action (DME) DIABETIC SNEAKERS See Rx Instructions .Route .MEDSUPPLY Qty: 1 0RF Rx Instructions: As directed fluticasone propionate [Flonase Allergy Relief] 50 mcg/actuation spray,suspension 1 spray intranasal DAILY Qty: 16 3RF Rx Instructions: administer into each nostril aspirin [Adult Aspirin Regimen] 81 mg tablet,delayed release (DR/EC) 81 mg PO DAILY Qty: 90 3RF (DME) twin size bed rail See Rx Instructions .Route .MEDSUPPLY Qty: 1 0RF Rx Instructions: As directed docusate sodium 100 mg capsule 100 mg PO BID Qty: 180 3RF simvastatin 20 mg tablet 20 mg PO BEDTIME Qty: 90 2RF lisinopril 5 mg tablet 5 mg PO QAM Qty: 90 2RF propranolol 20 mg tablet 20 mg PO BID Qty: 180 2RF fluoxetine 20 mg tablet 20 mg PO DAILY aripiprazole 2 mg tablet 2 mg PO DAILY aripiprazole 5 mg tablet 5 mg PO DAILY triamcinolone acetonide 0.5 % cream 1 appl topical BID 14 Days Qty: 15 0RF Zyrtec 10 mg capsule 10 mg PO DAILY Qty: 30 0RF clonazepam 0.5 mg tablet 0.5 mg PO BID PRN (Reason: Anxiety) polyethylene glycol 3350 [Miralax] 17 gram/dose powder 238 g PO ONCE Qty: 238 0RF Rx Instructions: As directed by gastroenterology department at [facility] Interventions: ED Discharge Assessment Last Done: 09/19/24 16:09 Discharge Date/Time: 09/19/24 16:10 Print Language: Faroese
[2024-09-19 11:53] LABS: Bacteria Urine None Seen (None Seen); Squamous Epithelial Cell Urine 0-2 /HPF (0-2); UACC Culture Trigger YES
[2024-09-19 11:58] LABS: Procalcitonin 0.04 ng/mL
[2024-09-19 12:22] VITALS: BP 103/53; PULSE 64; RESP 16; TEMP 38.1; O2SAT 97
[2024-09-19 12:28] LABS: Influenza A PCR POSITIVE (Negative); Influenza B PCR NEGATIVE (Negative); Resp Syncy Virus RNA Qual PCR NEGATIVE (Negative); SARS COV2 PCR INHOUSE NEGATIVE (Negative)
[2024-09-19 12:59] VITALS: BP 106/54; PULSE 69; RESP 18; O2SAT 97
[2024-09-19 15:17] VITALS: BP 125/84; PULSE 66; RESP 18; O2SAT 96
[2024-09-19] MEDS: Oseltamivir Phosphate 75 MG CAPSULE PO (15:41)
[2024-09-19 16:09] VITALS: BP 125/84; PULSE 66; RESP 18; TEMP 38.1; O2SAT 96
== END 2024-09-19 16:10 | disposition home or self-care (01) ==
PROVIDERS: Emergency Provider Emergency Medicine; PCP Internal Medicine
DX: S19.9XXA Unspecified injury of neck, initial encounter (principal); J10.1 Influenza due to other identified influenza virus with other respiratory manifestations; R51.9 Headache, unspecified; R06.02 Shortness of breath; R94.31 Abnormal electrocardiogram [ECG] [EKG]; M54.2 Cervicalgia; W19.XXXA Unspecified fall, initial encounter; Y93.9 Activity, unspecified; Y92.9 Unspecified place or not applicable; Y99.8 Other external cause status; Z79.899 Other long term (current) drug therapy; Z03.818 Encounter for observation for suspected exposure to other biological agents ruled out
CPT/HCPCS: 0241U; 70450; 71045; 72125; 80048; 80076; 81001; 82803; 83605; 83690; 83735; 83880; 84145; 84484; 85025; 86140; 87040; 87086; 93005; 96365; 96366; 96375; 99285; J0131; J0696; J7120

== ENCOUNTER → 2024-09-19 11:02 | Outpatient (BNV) | payer MEDICARE, MEDICAID, SELFPAY | PROVIDERS: Emergency Provider Emergency Medicine; PCP Internal Medicine; Visit Provider Radiology Diagnostic Radiology | DX: M50.30 Other cervical disc degeneration, unspecified cervical region (principal); S00.93XA Contusion of unspecified part of head, initial encounter; W19.XXXA Unspecified fall, initial encounter; J09.X2 Influenza due to identified novel influenza A virus with other respiratory manifestations; R05.9 Cough, unspecified | CPT/HCPCS: 70450; 71045; 72125 ==

== ENCOUNTER → 2024-09-19 11:02 | Outpatient (BNV) | payer MEDICARE, MEDICAID, SELFPAY | PROVIDERS: Emergency Provider Emergency Medicine; PCP Internal Medicine; Visit Provider Internal Medicine | DX: R53.1 Weakness (principal) | CPT/HCPCS: 93010 ==

== ENCOUNTER 2024-10-03 14:20 | Outpatient (AMB) | payer MEDICARE, MEDICAID, SELFPAY ==
--- NOTE | 2024-10-03 14:36 | MHC.PC.OV ---
Vital Signs 10/03/24 14:38 Height 5 ft 4 in Weight 131 lb 8 oz BMI 22.6 BP 130/70 Blood Pressure Location Lt brachial Position Sitting Pulse 59 Pulse Source Pulse Oximeter Temp 97.3 F Temp Source Temporal Artery Scan Pulse Oximetry (%) 98 Oxygen Delivery Method Room Air Intake Visit Reasons: Dyskinesia Intake Note: Patient is here to follow up on Dyskinesia. Smoke Inspector Required: No Revenue Investigator: Present Accompanied by: COLD PRESS OPERATOR Allergies benztropine Adverse Reaction (Intermediate, Uncoded 10/03/24 14:38) rash Tobacco use date assessed: 10/03/24 Dental Screening Dental Screen Date: 10/03/24 Did you have a dental visit in the last 12 months?: No Did you have a dental problem in the last 6 months where you did not have access to dental care?: No Was dental information given to patient?: No [facility] Medical History Colon cancer screening Impulse control disease Urinary incontinence Hypercholesterolemia Dementia Obsessive compulsive disorder Autism Hypertension Type 2 diabetes mellitus with hyperglycemia TIA (transient ischemic attack) Surgical History Hx of colonoscopy Hx of hemorrhoidectomy Family History Father Medical history unknown Mother Medical history unknown Sister No problems noted. Social History Housing: Apartment Alcohol intake: never Patient Tobacco Use Status: Never used Tobacco Tobacco use type: Cigarette e-Cigarette/Vaping Use: Never Used Second Hand Smoke Exposure: No service: No Current occupational status: disabled Cognitive needs: Yes Hearing needs: Yes (hearing aides) Vision needs: No Questionnaire PHQ-9 Over the last 2 weeks, how often have you been bothered by any of the following problems? 1. Little interest or pleasure in doing things: not at all 2. Feeling down, depressed, or hopeless: not at all 3. Trouble falling or staying asleep, or sleeping too much: not at all 4. Feeling tired or having little energy: not at all 5. Poor appetite or overeating: not at all 6. Feeling bad about yourself - or that you are a failure or have let yourself or your family down: not at all 7. Trouble concentrating on things, such as reading the newspaper or watching television: not at all 8. Moving or speaking so slowly that other people could have noticed. Or the opposite - being so fidgety or restless that you have been moving around a lot more than usual: not at all 9. Thoughts that you would be better off or of hurting yourself in some way: not at all Total score: 0 Depression Screening Interpretation: Negative Depression Screening Done: Yes Source: Developed by Drs. Rafael Gonsales, Lilia Kate, Paco Barr and colleagues, with an educational pauline from [employer]. Thrive Questionnaire Date Thrive assessed: 10/03/24 I am a: Parent/Caregiver What is your living situation today?: I have a steady place to live Within the past 12 months, did the food you bought not last and you didn't have the money to get more?: I choose not to answer this question Within the past 12 months, did you worry whether your food would run out before you got money to buy more?: I choose not to answer this question Do you have trouble paying for medicines?: No Do you have trouble getting transportation to medical appointments?: No Do you have trouble paying your heating and electricity bill?: No Do you have trouble taking care of your child, family member or friend?: No Do you have trouble with day-to-day activities such as bathing, preparing meals, shopping, managing finances, etc.?: No Are you currently unemployed and looking for a job?: No Are you interested in more education?: No THRIVE Score: 0 AUDIT C Alcohol Use Questionnaire (AUDIT-C) 1. How often do you have a drink containing alcohol?: Never Total Score: 0 MALIA-7 AMB Questionnaire MALIA-7 Date MALIA - 7 assessed: 10/03/24 Feeling nervous, anxious, or on edge: 0 = Not at all Not being able to stop or control worryin = Not at all Worrying too much about different things: 0 = Not at all Trouble relaxin = Not at all Being so restless that it is hard to sit still: 0 = Not at all Becoming easily annoyed or irritable: 0 = Not at all Feeling afraid as if something awful might happen: 0 = Not at all Total MALIA-7 score (0-4 normal; 5-9 mild; 10-14 moderate; 15-21 severe): 0 Source: Developed by Drs. Rafael Gonsales, Lilia Kate, Paco Barr and colleagues, with an educational pauline from [employer]. Physical exam (Primary Care) Vital Signs: Last Vital Signs Temp 97.3 F 10/03/24 14:38 Pulse 59 10/03/24 14:38 BP 130/70 10/03/24 14:38 Pulse Ox 98 10/03/24 14:38 Oxygen Delivery Method Room Air 10/03/24 14:38 BMI result Body Mass Index 22.6 Tobacco/Smoking Status: Tobacco use Status Tobacco use date assessed 10/03/24 10/03/24 14:44 Patient Tobacco Use Status Never used Tobacco 10/03/24 14:44 Tobacco use type Cigarette 10/03/24 14:44 e-Cigarette/Vaping Use Never Used 10/03/24 14:44 PHQ-9: PHQ-9 Score PHQ-9: Total score 0 10/03/24 14:47 Depression Screening Interpretation: Negative Thrive Assessment: Date of Thrive Assessment Date Thrive assessed 10/03/24 10/03/24 14:44 Const General: alert; No acute distress Eyes Conjunctivae: conjunctivae normal Resp Auscultation: clear to auscultation bilaterally Cardio Rate: regular rate Rhythm: regular rhythm GI Inspection: Yes normal to inspection Extrem General: Yes normal to inspection and No edema Coding Level of Care Code Est Pt Level 4 (61601) Diagnoses Autism F84.0 Hypercholesterolemia E78.00 Essential hypertension I10 Hypertension type: essential hypertension Type 2 diabetes mellitus with hyperglycemia, without long-term current use of insulin E11.65 Diabetes mellitus superintendent container terminal insulin use: without superintendent container terminal use Drug-induced dyskinesia G24.01 Assessment & Plan Assessment & Plan (1) Autism: Code(s): F84.0 - Autistic disorder Category: Medical Plan: Continue with follow-up with psychiatry and counseling (2) Hypercholesterolemia: Code(s): E78.00 - Pure hypercholesterolemia, unspecified Category: Medical Plan: Avoid fried foods, chicken skin, eggs, butter margarine, pastries and meat. Be it pork or beef they have a lot of cholesterol on simvastatin 20 mg at bedtime (3) Hypertension: Code(s): I10 - Essential (primary) hypertension Category: Medical Qualifiers: Hypertension type: essential hypertension Qualified Code(s): I10 - Essential (primary) hypertension Plan: Continue with blood pressure medication. Decrease salt intake and exercise takes propranolol 20 mg twice a day lisinopril 5 mg once a day (4) Type 2 diabetes mellitus with hyperglycemia: Comment: Dr. Sawyer Code(s): E11.65 - Type 2 diabetes mellitus with hyperglycemia Category: Medical Qualifiers: Diabetes mellitus superintendent container terminal insulin use: without snf use Qualified Code(s): E11.65 - Type 2 diabetes mellitus with hyperglycemia Plan: Decrease the amount of carbohydrate intake, pasta, bread, rice and potatoes are all sugar and that is aside from all the sweet stuff, remember that fruits are good but they are Sweet also. Controlled on diet and exercise (5) Drug-induced dyskinesia: Code(s): G24.01 - Drug induced subacute dyskinesia Category: Medical Plan: Continue to monitor Plan History of Present Illness The patient is a 63-year-old male presenting for follow-up care of multiple chronic health issues, primarily hypercholesterolemia and hypertension. Autism Spectrum Disorder influences communication and social interactions. His hypertension is controlled with propranolol, administered twice daily, and lisinopril once daily. Diabetes mellitus is diet and exercise-controlled, with stable blood sugar levels and a normal hemoglobin A1c. The patient's hypercholesterolemia management includes simvastatin, keeping LDL levels well within target range. His thrombocytopenia has been persistent over the years without acute complications. He recently experienced influenza, which included left-sided weakness that resolved following treatment with Tamiflu. Recent hospitalizations have been noted for influenza management. Dementia and drug-induced dyskinesia add to the overall complexity of care. Psychiatry and counseling form a franz part of his comprehensive management plan. Health Maintenance - Regular monitoring of cholesterol levels; LDL last recorded at 54 mg/dL. - Simvastatin 20 mg at bedtime for hypercholesterolemia management. - Blood sugar monitoring with emphasis on diet and exercise for diabetes control. - Continued follow-up with psychiatry for behavioral health management. Social History Review of Systems Physical Exam Results - Labs: Normal blood count, persistent thrombocytopenia, normal electrolytes, and renal function noted. - Tests and Diagnostics: Last cholesterol test in March 2024, LDL 54 mg/dL. Plan It is important to maintain current management strategies for the patient's chronic conditions. The regimen of simvastatin continues to effectively manage the patient's hypercholesterolemia, as evidenced by his stable LDL levels. Propranolol and lisinopril maintain adequate blood pressure control, supporting the management of essential hypertension. His diabetes is effectively controlled through diet and exercise without pharmacological intervention. Regular psychiatric follow-up remains a franz element, supporting comprehensive care addressing both physical and behavioral conditions. Thrombocytopenia, persisting without new symptoms, does not require immediate intervention. Previous influenza management was successful, with resolved weakness, confirming treatment effectiveness without further complications. Patient was informed and verbally consented to the use of an ambient scribe for clinic note documentation during this visit. Discussion Notes I discussed the current management of hypercholesterolemia and its successful control with simvastatin. We reviewed the importance of maintaining compliance with the propranolol and lisinopril regimen for optimal hypertension management. The necessity of sustaining a stable lifestyle to control diabetes was emphasized, highlighting how exercise and diet contribute effectively to diabetes management. The follow-up with psychiatry and mental health counseling remains a critical aspect of managing Autism Spectrum Disorder and Obsessive-Compulsive Disorder. Influenza management outcomes were discussed, confirming resolution of symptoms post-treatment with no need for additional interventions. A return to the clinic for ongoing surveillance and routine check-ups is recommended. Patient Instructions - Continue taking simvastatin 20 mg at bedtime. - Maintain current blood pressure regimen with propranolol and lisinopril. - Adhere to diet and exercise plan for diabetes management. - Follow up with psychiatry and counseling as scheduled. - Monitor for any new symptoms and report if they occur. - Return for routine follow-ups and blood work as advised. Orders: Orders Complete Blood Count Auto Diff 6 Months . - Type 2 diabetes mellitus with hyperglycemia Comprehensive Met. Panel 6 Months . - Type 2 diabetes mellitus with hyperglycemia Hemoglobin A1c 6 Months E11. - Type 2 diabetes mellitus with hyperglycemia Free T4 (Free Thyroxine) 6 Months E11. - Type 2 diabetes mellitus with hyperglycemia Lipid Panel 6 Months E11. - Type 2 diabetes mellitus with hyperglycemia, E78.00 - Pure hypercholesterolemia, unspecified Prostate Specific Antigen Scr 6 Months . - Type 2 diabetes mellitus with hyperglycemia Creatinine Urine 6 Months . - Type 2 diabetes mellitus with hyperglycemia Microalbumin, Random (w Creat) 6 Months . - Type 2 diabetes mellitus with hyperglycemia Thyroid Stimulating Hormone 6 Months E11. - Type 2 diabetes mellitus with hyperglycemia Vitamin B12 and Folate 6 Months E11. - Type 2 diabetes mellitus with hyperglycemia
[2024-10-03 14:38] VITALS: BP 130/70; PULSE 59; TEMP 36.3; O2SAT 98; BMI 22.6
--- OUTSIDE RECORDS SUMMARY | 2024-10-03 17:06 | XMS_ITS | Clinical Summary ---
Author Organization [address] [facility] Address [address] [place] [address] Phone Care Team Providers Care Computer Security Manager Name Role Phone Kathleen Clarke MD Primary Care Provider [phone] Allergies No known active allergies Medications aspirin [...] Comments Diabetes mellitus type 2, di et-controlled ([facility]) 04/17/2016 DX:Diabetes mellitus type 2, diet-controlled (HCC) [...] PM EDT Office Visit Orthopedic Surgery - [place] [id number] [id number] Gilberto Francois, DPM [address] [address] Health Maintenance Due Date Last Done Comments [...] Insurance MEDICAID - [place] MEDICARE Care Teams Computer Security Manager Relationship Specialty Start Date End Date Kathleen Clarke MD [address] [place] [address] [address] [facility] [place] [address] PCP - General Internal Medicine 02/05/16
== END 2024-10-03 15:03 | disposition home or self-care (01) ==
PROVIDERS: PCP Internal Medicine; Visit Provider Internal Medicine
DX: F84.0 Autistic disorder (principal); E78.00 Pure hypercholesterolemia, unspecified; I10 Essential (primary) hypertension; E11.65 Type 2 diabetes mellitus with hyperglycemia; G24.01 Drug induced subacute dyskinesia

== ENCOUNTER → 2024-10-03 14:20 | Outpatient (BNVA) | payer MEDICARE, MEDICAID, SELFPAY | PROVIDERS: PCP Internal Medicine; Visit Provider Internal Medicine | DX: E78.00 Pure hypercholesterolemia, unspecified (principal); F84.0 Autistic disorder; I10 Essential (primary) hypertension; E11.65 Type 2 diabetes mellitus with hyperglycemia; G24.01 Drug induced subacute dyskinesia | CPT/HCPCS: 99212 ==

== ENCOUNTER 2024-11-25 14:45 | Outpatient (AMB) | payer MEDICARE, MEDICAID, SELFPAY ==
--- NOTE | 2024-11-25 15:02 | A.OFFPC_ITS ---
Vital Signs 11/25/24 15:07 Height 5 ft 4 in Weight 128 lb 2 oz BMI 22.0 BP 140/80 H Blood Pressure Location Lt brachial Position Sitting Pulse 68 Pulse Source Pulse Oximeter Temp 98.4 F Temp Source Temporal Artery Scan Pulse Oximetry (%) 98 Oxygen Delivery Method Room Air Intake Visit Reasons: WheelChair eval Intake Note: Patient is here to follow up on Wheelchair evaluation. Internet Marketer Required: No Radiology Receptionist: Present Accompanied by: Dental Assistant Medical Assistant Allergies benztropine Adverse Reaction (Intermediate, Uncoded 11/25/24 15:13) rash Medication List - Last Reconciled 11/25/24 by Virginia Veliz PA-C aripiprazole 2 mg PO DAILY aripiprazole 5 mg PO DAILY aspirin (Adult Aspirin Regimen) 81 mg PO DAILY cetirizine (Zyrtec) 10 mg PO DAILY [DIABETIC SNEAKERS As directed] docusate sodium 100 mg PO BID fluoxetine 20 mg PO DAILY fluticasone propionate 50 mcg/actuation (Flonase Allergy Relief) 1 spray intranasal DAILY lisinopril 5 mg PO QAM lorazepam 0.5 mg PO BID oseltamivir (Tamiflu) 75 mg PO BID 5 days polyethylene glycol 3350 (Miralax) 238 grams PO ONCE propranolol 20 mg PO BID simvastatin 20 mg PO BEDTIME triamcinolone acetonide 0.5% 1 appl topical BID 14 days [twin size bed rail As directed] Tobacco use date assessed: 11/25/24 Fall risk assessment: No Falls in past year Last assessed Fall Risk: 11/25/24 Dental Screening Dental Screen Date: 10/03/24 HPI WheelChair eval HPI Details 64-year-old male with past medical histo ry of hypertension, autism, OCD, hypercholesterolemia, diabetes mellitus, TIA, osteoporosis last seen 10/2024 coming in for acute problem. Presenting with concerns about his mobility status post recent Influenza Type A infection, leading to temporary physical decline. He has established dementia, anxiety disorder, and personality behavior disorder. Anxiety notably worsens in winter, impacting his posture. Patient has no history of falls. Care efforts focus on maintaining independence and physical conditioning, disputing recent PT recommendation for wheelchair use due to worsening anxiety associated with potential physical restrictions. [facility] Medical History Colon cancer screening Impulse control disease Urinary incontinence Hypercholesterolemia Dementia Obsessive compulsive disorder Autism Hypertension Type 2 diabetes mellitus with hyperglycemia TIA (transient ischemic attack) Surgical History Hx of colonoscopy Hx of hemorrhoidectomy Family History Father Medical history unknown Mother Medical history unknown Sister No problems noted. Social History Housing: Apartment Alcohol intake: never Patient Tobacco Use Status: Never used Tobacco Tobacco use type: Cigarette e-Cigarette/Vaping Use: Never Used Second Hand Smoke Exposure: No service: No Current occupational status: disabled Cognitive needs: Yes Hearing needs: Yes (hearing aides) Vision needs: No Questionnaire PHQ-9 Over the last 2 weeks, how often have you been bothered by any of the following problems? 1. Little interest or pleasure in doing things: not at all 2. Feeling down, depressed, or hopeless: not at all 3. Trouble falling or staying asleep, or sleeping too much: not at all 4. Feeling tired or having little energy: not at all 5. Poor appetite or overeating: not at all 6. Feeling bad about yourself - or that you are a failure or have let yourself or your family down: not at all 7. Trouble concentrating on things, such as reading the newspaper or watching television: not at all 8. Moving or speaking so slowly that other people could have noticed. Or the opposite - being so fidgety or restless that you have been moving around a lot more than usual: not at all 9. Thoughts that you would be better off or of hurting yourself in some way: not at all Total score: 0 Depression Screening Interpretation: Negative Depression Screening Done: Yes Source: Developed by Drs. Rafael Gonsales, Lilia Kate, Paco Barr and colleagues, with an educational pauline from [employer]. Thrive Questionnaire Date Thrive assessed: 11/25/24 MALIA-7 AMB Questionnaire MALIA-7 Date MALIA - 7 assessed: 10/03/24 Source: Developed by Drs. Rafael Gonsales, Paco Robertske and colleagues, with an educational pauline from [employer]. Review of Systems Const Denies fever(s) and Denies poor appetite Eyes Reports no additional complaints ENT Denies dizziness Card Denies chest pain, Denies syncope and Denies lightheadedness Resp Reports no additional complaints Musc Reports as per HPI and Reports abnormal gait Skin/Breast Reports system reviewed and no additional complaints, except as documented Neuro Reports abnormal gait, Denies dizziness and Denies syncope Psych Reports no additional complaints Physical exam (Primary Care) Vital Signs: Last Vital Signs Temp 98.4 F 11/25/24 15:07 Oxygen Delivery Method Room Air 11/25/24 15:07 BMI result Body Mass Index 22.0 Tobacco/Smoking Status: Tobacco use Status Tobacco use date assessed 11/25/24 11/25/24 15:03 Patient Tobacco Use Status Never used Tobacco 11/25/24 15:03 Tobacco use type Cigarette 11/25/24 15:03 e-Cigarette/Vaping Use Never Used 11/25/24 15:03 PHQ-9: PHQ-9 Score PHQ-9: Total score 0 11/25/24 15:03 Depression Screening Interpretation: Negative Thrive Assessment: Date of Thrive Assessment Date Thrive assessed 11/25/24 11/25/24 15:03 Const General: cooperative, healthy appearing, comfortable and no acute distress Orientation/consciousness: patient oriented x3 HENMT Head: Yes normocephalic Ears: hearing grossly normal bilaterally General nose exam: Normal external nose present Eyes General: appearance normal, both eyes and all related structures Conjunctivae: conjunctivae normal Neck Neck: Yes full ROM and Yes no lymphadenopathy Resp Effort & Inspection: normal respiratory effort Cardio Rate: regular rate Rhythm: regular rhythm Skin General skin exam: no rashes or lesions noted Neuro General: patient oriented x3 Gait exam (Neuro): Normal gait present Extrem General: Yes normal to inspection, Yes full ROM and No edema Psych Affect: normal affect Attitude: cooperative Insight: Good insight present (Psych) Judgement: Good judgement present (Psych) Coding Level of Care Code Est Pt Level 3 (49633) Diagnoses Gait instability R26.81 Assessment & Plan Assessment & Plan (1) Gait instability: Code(s): R26.81 - Unsteadiness on feet Category: Medical Plan: Focus on maintaining mobility and independence through supervised home exercise initiatives to counteract muscle deconditioning. A continuous review of wheelchair necessity is warranted, considering its potential to increase anxiety. I did observe the patient ambulating up and down the hallway and he was able to walk unassisted and has good muscle strength in the lower extremeties to support ambulation. He does have mild instability due to his tremors but is still able to ambulate independently. At this time he would not be a good candidate for a wheelchair. I did offer a cane/walker to assist however the patient and ORCHESTRA MUSICIAN declined today. Plan This note was constructed using voice recognition software. While every effort has been made to ensure accuracy and spray blender, still areas may have been included sometimes these areas may affect the content or meeting of the given symptoms. Total time spent caring for the patient today was 20 minutes. This includes time spent before the visit reviewing the chart, time spent during the visit, and time spent after the visit and documentation. Patient was informed and verbally consented to the use of an ambient scribe for clinic note documentation during this visit. Medications: Refilled fluticasone propionate 50 mcg/actuation (Flonase Allergy Relief) administer into each nostril 1 spray intranasal DAILY 16 grams 3RF
[2024-11-25 15:07] VITALS: BP 140/80; PULSE 68; TEMP 36.9; O2SAT 98; BMI 22.0
--- OUTSIDE RECORDS SUMMARY | 2024-11-25 15:30 | XMS_ITS | Clinical Summary ---
Author Organization 175 [facility] Address 175 [place] [address] Phone Care Team Providers Care Platemaker Name Role Phone Kathleen Clarke MD Primary Care Provider [phone] Allergies No known active allergies Medications aspirin [...] 12/01/2017 Hypertension 12/01/2017 Diabetes mellitus type 2, di et-controlled (CMS/[facility] V24, CMS/[facility] V28) 04/17/2016 Hammer toe of right foot 04/17/2016 Encounters Date Type Department Care Team Description 10/19/2024 2:45 PM EDT Office Visit Orthopedic Surgery - [place] [address] [phone] Gilberto Francois DPM Controlled type 2 diabetes with neuropathy ([facility] [place], [facility] [place]28) (Primary Dx); Pain in toes of both feet; Arthritis of both feet; Hammertoes of both feet; Dermatophytosis, nail from Last 3 Months Medical History Medical History Date Comments Diabetes mellitus type 2, di et-controlled ([facility] [place] [facility] [place]) 04/17/2016 DX:Diabetes mellitus type 2 , diet-controlled ([facility]) Hyperlipidemia DX:Hyperlipidemi a Hypertension DX:Hypertension CAD (coronary [...] - - Weight 67.6 kg (149 lb) 10/19/2024 3:25 PM EDT Height 157.5 cm (5' 2.01 ) 10/19/2024 3:25 PM ED T Body Mass Index 27.25 10/19/2024 3:25 PM EDT Plan of Treatment Upcoming Encounters Date Type Department Care Team (Late st Contact Info) Description 01/19/2025 2:30 PM EDT Office Visit Orthopedic Surgery [facility] [address] [phone] Gilberto Francois DPM [address] [address] Health Maintenance Due Date Last Done Comments Diabetes: Annual GFR (Glomerular Filtration Rate) 1960 Diabetes: Annual Foot Exam 1970 Diabetes: Annual Retina Eye Exam 1970 Pneumococcal Vaccine: 50+ Years (2 of 2 - PCV) 01/27/2018 01/27/2017 Pneumococcal Vaccine: Pediatrics (0 to 5 Years) and At-Risk Patients (6 to 64 Years) (2 of 2 - PCV) 01/27/2018 01/27/2017 Cholesterol Screening (Lipid Panel) 07/12/2022 Colorectal Cancer Screening: Colonoscopy 07/12/2022 Depression Screening 07/12/2022 HIV Screening 07/12/2022 Hepatitis C Screening 07/12/2022 Medicare Annual Wellness Visit 07/12/2022 Social Influencers of Health Screening 07/12/2022 Diabetes: Annual Urine Albumin-Creatinine Ratio (uACR) 07/18/2022 Diabetes: Blood Sugar Control Test (HGBA1C) 07/18/2022 Hypertension/CHF/CAD Annual BMP Blood Test 07/18/2022 DTaP,Tdap,and Td Vaccines (2 - Td or Tdap) 04/05/2034 04/05/2024 Zoster Vaccines Completed 08/31/2022, 06/20/2022 COVID-19 Vaccine Completed 10/05/2024, 07/2023, 06/20/2022, Additional history exists Influenza Vaccine Completed 10/05/2024, , 06/20/2022, Additional history exists RSV Immunization Adult Patients Completed 10/12/2024 HIB Vaccines Aged Out No longer eligi [...] age to complete this topic Meningococcal B Vaccine Aged Out No l onger eligible based on patient's age to complete this topic RSV Immunization Patients Under 20 months Aged Out No longer eligible based on patient's age to complete this topic Varicella Vaccines Aged Out No longer eligible based on patient's age to complete this topic Insurance [place] - [place]ARE Care Teams Platemaker Relationship Specialty Start Date End Date Kathleen Clarke MD [address] [place] [address] [address] [facility] [place] [address] PCP - General Internal Medicine 02/05/16
== END 2024-11-25 15:45 | disposition home or self-care (01) ==
LOC: HO.HMCH 14:46
PROVIDERS: PCP Internal Medicine
DX: R26.81 Unsteadiness on feet (principal)

== ENCOUNTER → 2024-11-25 14:45 | Outpatient (BNVA) | payer MEDICARE, MEDICAID, SELFPAY | PROVIDERS: PCP Internal Medicine | DX: R26.81 Unsteadiness on feet (principal) | CPT/HCPCS: 99212 ==

== ENCOUNTER 2025-02-16 13:39 | Outpatient (REF) | payer MEDICARE, MEDICAID, SELFPAY ==
--- OUTSIDE RECORDS SUMMARY | 2025-02-16 14:18 | XMS_ITS | Clinical Summary ---
Author Organization 175 [facility] Address 175 [place] [address] Phone Care Team Providers Care Sales Agent Protective Service Name Role Phone Kathleen Clarke MD Primary Care Provider [phone] Allergies No known active allergies Medications aspirin [...] 12/01/2017 Diabetes mellitus type 2, di et-controlled (CMS/[facility] V24, CMS/[facility] V28) 04/17/2016 Hammer toe of right foot 04/17/2016 Encounters Date Type Department Care Team Description 01/19/2025 2:30 PM EDT Office Visit Orthopedic Surgery [place] [address] [phone] Gilberto Francois DPM Controlled type 2 diabetes with neuropathy ([facility] [place]24, [facility] V28) (Primary Dx); Metatarsalgia of right foot; Arthritis of both feet; PAD (peripheral artery disease) ([facility] V24); Pain in toes of both feet; Dermatophytosis, nail; Hammertoes of both feet from Last 3 Months Medical History Medical History Date Comments Diabetes mellitus type 2, di et-controlled ([facility] V24, [facility] V28) 04/17/2016 DX:Diabetes mellitus type 2 , diet-controlled ([facility]) Hyperlipidemia DX:Hyperlipidemi a Hypertension DX:Hypertension CAD [...] Care Team (Late st Contact Info) Description 04/24/2025 2:15 PM EDT Office Visit Orthopedic Surgery [facility] [address] [phone] Gilberto Francois DPM [address] [phone] Health Maintenance Due Date Last Done Comments [...] 07/18/2022 Hypertension/CHF/CAD Annual BMP Blood Test 07/18/2022 Influenza Vaccine (#1) 2025 , 05/14/2023, 06/20/2022, Additional history exists DTaP,Tdap,and Td Vaccines (2 - Td or Tdap) 04/05/2034 04/05/2024 Zoster Vaccines Completed 08/31/2022, 06/20/2022 COVID-19 Vaccine Completed 10/05/2024, 07/2023, 06/20/2022, Additional history exists RSV Immunization Adult [...] [place] Care Teams Sales Agent Protective Service Relationship Specialty Start Date End Date Kathleen Clarke MD [address] [place] [address] [address] [facility] [place] [address] PCP - General Internal Medicine 02/05/16
--- NOTE | 2025-02-16 16:33 | MHC.AU.HA3 ---
Hearing Instrument Follow-Up- Binaural Date of Visit: 02/16/25 Right Ear: Caleb, , Color, Serial Number: [id number] SN: [id number] Color: White Rubber Stamp Assembler Repair Warranty: 01/30/2024 Rubber Stamp Assembler Loss and Damage Warranty: 01/30/2024 [facility] Service Plan: 01/29/2022 Battery Size: Rechargeable Atomizer Assembler/Slim Tube: 1 slim tube Earmold/Dome/CShell/SlimTip:Microsonic M2000 Skeleton-style, clear, medium vent, made to fit slim tube Dispensed By: [facility] Date of Fittin11/14/2020 Left Ear: Model Caleb, Color, Serial Number: [id number] SN: [id number] Color: White Rubber Stamp Assembler Repair Warranty: 01/30/2024 Rubber Stamp Assembler Loss and Damage Warranty: 01/30/2024 [facility] Service Plan: 01/29/2022 Battery Size: Rechargeable Atomizer Assembler/Slim Tube: 1 slim tube Earmold/Dome/CShell/SlimTip: Microsonic M2000 Skeleton-style, clear, medium vent, made to fit slim tube Dispensed By: [facility] Date of Fittin11/14/2020 Follow-Up Summary: Accompanied by biomedical engineering technician, Kaity. Scheduled for hearing test. Otoscopy showed significant, active bleeding in right EAC, could not visualize TM. Started testing; however, discontinued due to change in hearing at 1 and 2 kHz in right ear. Recommended following up with PCP and possibly ENT due to status of right EAC and rescheduling hearing test until after treatment. Recommended discontinuing DOOLEY use in right ear until resolved. Kaity reported she recently used hydrogen peroxide to clean out wax which she has been doing for >10 years. Otherwise no known, possible cause for bleeding in the ear. Upon arrival, both HAs not working due to tubes occluded with wax. Right EM coated with blood. Cleaned HAs (2). Cleaned EMs (2). Replaced slim tubes (2). 46145 x6. Vacuumed microphones. Ran through dehumidifier. Listening check demonstrated HAs amplifying clearly. Provided another green fishing line cleaning tool and reinstructed on use. Recommendations: Hearing instrument follow-up or maintenance as needed. Please contact our clinic with any questions or concerns. Diagnosis Code(s): Primary Diagnosis: H90.3 Bilateral Sensorineural Hearing Loss Signature: Provider: Víctor Nath, [facility]
== END 2025-02-16 13:40 | disposition home or self-care (01) ==
LOC: HO.SH 13:39
PROVIDERS: Visit Provider Internal Medicine
DX: Z01.118 Encounter for examination of ears and hearing with other abnormal findings (principal); H90.3 Sensorineural hearing loss, bilateral
CPT/HCPCS: 92593; 99499

== ENCOUNTER 2025-02-16 14:55 | Outpatient (AMB) | payer MEDICARE, MEDICAID, SELFPAY ==
[2025-02-16 15:24] VITALS: BP 122/80; PULSE 69; TEMP 36.7; O2SAT 99
--- NOTE | 2025-02-16 15:24 | AM.OFFWIN_ITS ---
Intake Vital Signs 02/16/25 15:24 Height 5 ft 4 in BP 122/80 Blood Pressure Location Lt brachial Position Sitting Pulse 69 Pulse Source Pulse Oximeter Temp 98.1 F Temp Source Temporal Artery Scan Pulse Oximetry (%) 99 Oxygen Delivery Method Room Air Intake Visit Reasons: EP blood in RT ear Intake Note: presents with bleeding in right ear Patient Tobacco Use Status: Never used Tobacco Allergies benztropine Adverse Reaction (Intermediate, Uncoded 11/25/24 15:13) rash HPI HPI Comments History of Present Illness Details 64 y/o Male patient who presents to the walk in clinic with c/o Right Ear bleeding. Pt is Autistic and has Dementia - history given by the Expediter Clerk. Pt scratched his right ear earlier today causing it to bleed. Pt denies pain. [facility] Medical History (Updated 02/16/25 @ 16:05 by Belen Gutierrez NP) Otitis externa Colon cancer screening Impulse control disease Urinary incontinence Hypercholesterolemia Dementia Obsessive compulsive disorder Autism Hypertension Type 2 diabetes mellitus with hyperglycemia TIA (transient ischemic attack) Surgical History Hx of colonoscopy Hx of hemorrhoidectomy Family History Father Medical history unknown Mother Medical history unknown Sister No problems noted. Social History Housing: Apartment Alcohol intake: never Patient Tobacco Use Status: Never used Tobacco Tobacco use type: Cigarette e-Cigarette/Vaping Use: Never Used Second Hand Smoke Exposure: No service: No Current occupational status: disabled Cognitive needs: Yes Hearing needs: Yes (hearing aides) Vision needs: No Review of Systems Const All systems reviewed & are unremarkable except as noted in HPI and below Physical Exam Vital Signs: Last Vital Signs Temp 98.1 F 02/16/25 15:24 Pulse 69 02/16/25 15:24 BP 122/80 02/16/25 15:24 Pulse Ox 99 02/16/25 15:24 Oxygen Delivery Method Room Air 02/16/25 15:24 HEENT Head: Yes normocephalic Ears: external ears normal, Abnormal EAC present erythema on the right, EAC tenderness on the right and otic discharge bloody on the right; no edema and no foreign body and TM abnormal erythematous on the right and retracted on the right General nose exam: Normal external nose present Face and sinus: Yes sinuses nontender Mouth: moist mucous membranes Throat: Yes uvula midline Assessment & Plan Assessment & Plan (1) Otitis externa: Code(s): H60.90 - Unspecified otitis externa, unspecified ear Qualifiers: Chronicity: acute Laterality: right Otitis externa type: hemorrhagic Qualified Code(s): H60.321 - Hemorrhagic otitis externa, right ear Plan: Presence of Blood in the right EAC with TM Bulging and retracted - ordered Otic Abx Acetaminophen for pain relief. After visit Letter printed and left at the front office secretary. Medications: New ciprofloxacin-dexamethasone 0.3-0.1 % 4 drps otic (ears) BID 7.5 mL 0RF 7 days H60.321 - Hemorrhagic otitis externa, right ear Coding Level of Care Code Est Pt Level 4 (61382) Diagnoses Acute hemorrhagic otitis externa of right ear H60.321 Chronicity: acute Laterality: right Otitis externa type: hemorrhagic Time Spent (min) 20
== END 2025-02-16 16:11 | disposition home or self-care (01) ==
PROVIDERS: PCP Internal Medicine; Visit Provider Nurse Practitioner Family
DX: H60.321 Hemorrhagic otitis externa, right ear (principal)

== ENCOUNTER → 2025-02-16 14:55 | Outpatient (BNVA) | payer MEDICARE, MEDICAID, SELFPAY | PROVIDERS: PCP Internal Medicine; Visit Provider Nurse Practitioner Family | DX: H60.321 Hemorrhagic otitis externa, right ear (principal) | CPT/HCPCS: 99212 ==

== ENCOUNTER 2025-03-02 10:25 | Outpatient (AMB) | payer MEDICARE, MEDICAID, SELFPAY ==
[2025-03-02 10:35] VITALS: BP 122/80; PULSE 74; TEMP 37.1; O2SAT 96; BMI 22.0
--- NOTE | 2025-03-02 10:35 | MHC.OFFWIV ---
Intake Vital Signs 03/02/25 10:35 Height 5 ft 4 in Weight 128 lb BMI 22.0 BP 122/80 Blood Pressure Location Rt brachial Position Sitting Pulse 74 Pulse Source Pulse Oximeter Temp 98.8 F Temp Source Oral Pulse Oximetry (%) 96 Oxygen Delivery Method Room Air Intake Visit Reasons: EP pain on RT ear Intake Note: presents with rt ear pain Patient Tobacco Use Status: Never used Tobacco Allergies benztropine Allergy (Mild, Verified 03/02/25 10:38) Rash Do you need a note to return to daycare/school/sports/work: No HPI HPI Comments History of Present Illness Details 64 y/o Male patient who presents to the walk in clinic with c/o Right ear bleeding. Pt accompanied by a Cooler Supervisor who provides history. Pt was seen by me here on 02/16 for similar issue. He was prescribed Cipro Otic Drops for Otitis Externa which was ineffective. He returns today for Check-up of right Ear. COUNTS INCLUDE 234 BEDS AT THE [facility] Medical History (Updated 03/02/25 @ 11:04 by Belen Gutierrez NP) Otitis media Otitis externa Colon cancer screening Impulse control disease Urinary incontinence Hypercholesterolemia Dementia Obsessive compulsive disorder Autism Hypertension Type 2 diabetes mellitus with hyperglycemia TIA (transient ischemic attack) Surgical History Hx of colonoscopy Hx of hemorrhoidectomy Family History Father Medical history unknown Mother Medical history unknown Sister No problems noted. Social History Housing: Apartment Alcohol intake: never Patient Tobacco Use Status: Never used Tobacco Tobacco use type: Cigarette e-Cigarette/Vaping Use: Never Used Second Hand Smoke Exposure: No service: No Current occupational status: disabled Cognitive needs: Yes Hearing needs: Yes (hearing aides) Vision needs: No Review of Systems Const All systems reviewed & are unremarkable except as noted in HPI and below Physical Exam Vital Signs: Last Vital Signs Temp 98.8 F 03/02/25 10:35 Pulse 74 03/02/25 10:35 BP 122/80 03/02/25 10:35 Pulse Ox 96 03/02/25 10:35 Oxygen Delivery Method Room Air 03/02/25 10:35 BMI result Body Mass Index 22.0 Const General: no acute distress HEENT Ears: external ears normal, TM normal on the left and TM abnormal bulging on the right, wth effusion hemotympanum, erythematous on the right and perforated with bloody discharge on the right General nose exam: Normal external nose present Resp Effort & Inspection: normal respiratory effort Auscultation: clear to auscultation bilaterally Cardio Heart sounds: S1 normal heart sound present and S2 normal heart sound present Assessment & Plan Assessment & Plan (1) Otitis media: Code(s): H66.90 - Otitis media, unspecified, unspecified ear Qualifiers: Chronicity: acute Laterality: right Otitis media type: serous Recurrence: non-recurrent Qualified Code(s): H65.01 - Acute serous otitis media, right ear Plan: On 02/16 - there was a small Tear EAC with presence of blood, TM was intact Today TM Perforated with Presence of blood. Ordered Amoxicillin for 7 days. Avoid getting water insode ears or wear Ear Plugs. Avoid Putting objects inside ear - Pt likes to scratch Ears. Medications: New amoxicillin-pot clavulanate 875-125 mg 1 tab PO BID 14 tabs 0RF 7 days H65.01 - Acute serous otitis media, right ear Discontinued ciprofloxacin-dexamethasone 0.3-0.1 % Discontinued Reason: Patient Completed Course 4 drps otic (ears) BID 7 days 7.5 mL 0RF H60.321 - Hemorrhagic otitis externa, right ear Coding Level of Care Code Est Pt Level 4 (14415) Diagnoses Non-recurrent acute serous otitis media of right ear H65.01 Chronicity: acute Laterality: right Otitis media type: serous Recurrence: non-recurrent Time Spent (min) 20
--- OUTSIDE RECORDS SUMMARY | 2025-03-02 11:07 | XMS_ITS | Clinical Summary ---
Author Organization [address] [place] [address] Address [address] [place] [address] Phone Care Team Providers Care Cannon Fire Direction Specialist Name Role Phone Kathleen Clarke MD Primary Care Provider [phone] Allergies No known active allergies Medications aspirin [...] 12/01/2017 Diabetes mellitus type 2, di et-controlled (CMS/[facility] V24, CMS/[facility] V28) 04/17/2016 Hammer toe of right foot 04/17/2016 Encounters Date Type Department Care Team Description 01/19/2025 2:30 PM EDT Office Visit Orthopedic Surgery [place] [address] [phone] Gilberto Francois DPM Controlled type 2 diabetes with neuropathy ([facility] [place]24, [facility] V28) (Primary Dx); Metatarsalgia of right foot; Arthritis of both feet; PAD (peripheral artery disease) ([facility] V24); Pain in toes of both feet; Dermatophytosis, nail; Hammertoes of both feet from Last 3 Months Medical History Medical History Date Comments Diabetes mellitus type 2, di et-controlled ([facility] V24, [facility] V28) 04/17/2016 DX:Diabetes mellitus type 2 , diet-controlled ([facility]) Hyperlipidemia DX:Hyperlipidemi a Hypertension DX:Hypertension CAD (coronary [...] 2:15 PM EDT Office Visit Orthopedic Surgery [facility] [address] [phone] Gilberto Francois DPM [address] [address] Health Maintenance Due Date Last Done Comments Diabetes: Annual GFR (Glomerular Filtration Rate) 1960 Diabetes: Annual Foot Exam 1970 Diabetes: Annual Retina Eye Exam 1970 Pneumococcal Vaccine: 50+ Years (2 of 2 - PCV) 01/27/2018 01/27/2017 Cholesterol Screening (Lipid Panel) 07/12/2022 Colorectal Cancer Screening: Colonoscopy 07/12/2022 HIV Screening 07/12/2022 Hepatitis C Screening 07/12/2022 Medicare Annual Wellness Visit 07/12/2022 Social Influencers of Health Screening 07/12/2022 Diabetes: Annual Urine Albumin-Creatinine Ratio (uACR) 07/18/2022 Diabetes: Blood Sugar Control Test (HGBA1C) 07/18/2022 Hypertension/CHF/CAD Annual BMP Blood Test 07/18/2022 Depression Screening 08/03/2024 Influenza Vaccine (#1) 2025 , 05/14/2023, 06/20/2022, [...] Insurance [place] Care Teams Cannon Fire Direction Specialist Relationship Specialty Start Date End Date Kathleen Clarke MD [address] [place] [address] Dr Reyes [address] [facility] [place] [address] PCP - General Internal Medicine 02/05/16
== END 2025-03-02 11:07 | disposition home or self-care (01) ==
PROVIDERS: PCP Internal Medicine; Visit Provider Nurse Practitioner Family
DX: H65.01 Acute serous otitis media, right ear (principal)

== ENCOUNTER → 2025-03-02 10:25 | Outpatient (BNVA) | payer MEDICARE, MEDICAID, SELFPAY | PROVIDERS: PCP Internal Medicine; Visit Provider Nurse Practitioner Family | DX: H65.01 Acute serous otitis media, right ear (principal) | CPT/HCPCS: 99212 ==

== ENCOUNTER 2025-04-11 09:53 | Outpatient (REF) | payer MEDICARE, MEDICAID, SELFPAY ==
--- NOTE | ~2025-04-11 | XR_ITS ---
EXAMINATION: XR ABDOMEN 1 VIEW (KUB) HISTORY: R63.4 - Abnormal weight loss COMPARISON: Comparison is made with the prior examination dated 05/31/2018. FINDINGS: Two supine views of the abdomen are submitted. The bowel gas pattern is unremarkable, without evidence of mechanical obstruction. There is a moderate to large amount of stool throughout the colon. No abnormal calcifications are identified. There are no abnormal soft tissue masses. There is degenerative disc disease of the spine. XR/XR abdomen 1V IMPRESSION: Moderate to large amount of stool throughout the colon. Electronically signed by: Rafael Tena MD 04/11/2025 03:50 PM EDT
--- NOTE | ~2025-04-11 | XR_ITS ---
EXAMINATION: XR CHEST 2 VIEWS HISTORY: R63.4 - Abnormal weight loss COMPARISON: Comparison is made with the prior examination dated 09/19/2024. FINDINGS: PA and lateral views of the chest are submitted. There are low lung volumes. The lungs are clear. There is no pleural effusion, pneumothorax, or pulmonary vascular congestion. The heart is normal in size. There is degenerative disc disease of the spine. XR/XR chest 2V IMPRESSION: Low lung volumes. No acute cardiopulmonary abnormality. Electronically signed by: Rafael Tena MD 04/11/2025 02:19 PM EDT
[2025-04-11 13:05] LABS: MANUAL DIFF FLAG NO
[2025-04-11 13:19] LABS: Hematocrit 43.9 % (42.0-52.0); Hemoglobin 15.1 g/dl (14.0-18.0); Imm Gran Abs Auto 0.07 X10*3/uL (0.00-0.03); Imm Gran Pct Auto 1.3 % (0.0-0.4); Lymphocytes Absolute Auto 0.7 X10*3/uL (1.2-4.9); Mean Corpuscular HGB Conc 34.4 g/dl (31.0-36.0); Mean Corpuscular Hemoglobin 29.5 pg (27.0-33.0); Mean Corpuscular Volume 85.9 fL (80.0-98.0); NRBC Abs Auto 0.000 X10*3/uL (0.0-0.012); NRBC Pct Auto 0.0 /100WBC (0.0-0.2); Platelet Count 165 X10*3/uL (160-400); Red Blood Count 5.11 X10*6/uL (4.60-5.80); White Blood Count 5.3 X10*3/uL (4.8-10.8)
[2025-04-11 13:49] LABS: Alanine Aminotransferase 25 U/L (0-40); Albumin Level 4.4 g/dL (3.5-5.0); Alkaline Phosphatase 80 U/L (39-117); Anion Gap 13 (12-20); Aspartate Amino Transferase 25 U/L (5-37); Blood Urea Nitrogen 10 mg/dL (9-16); Calcium 9.0 mg/dL (8.4-10.2); Carbon Dioxide 27 mmol/L (22-29); Chloride 106 mmol/L (96-108); Cholesterol 101 mg/dL (<200); Estimated Glomerular Filt Rate > 60; HDL Cholesterol 36 mg/dL (>40); Potassium 3.9 mmol/L (3.3-5.1); Sodium 142 mmol/L (135-145); Total Protein 6.5 g/dL (6.5-8.0); Triglycerides 82 mg/dL (<150)
[2025-04-11 14:06] LABS: Folate 6.4 ng/mL (> or = 4.0); Vitamin B12 622 pg/mL (200-900)
[2025-04-11 14:13] LABS: Free T4 (Free Thyroxine) 0.98 ng/dL (0.71-1.85); Thyroid Stimulating Hormone 1.21 uIU/mL (0.32-4.0)
== END 2025-04-11 09:54 | disposition home or self-care (01) ==
LOC: HO.HMGCLDS 09:53
PROVIDERS: PCP Internal Medicine; Visit Provider Internal Medicine
DX: Z12.5 Encounter for screening for malignant neoplasm of prostate (principal); Z00.00 Encounter for general adult medical examination without abnormal findings; M81.0 Age-related osteoporosis without current pathological fracture; E11.65 Type 2 diabetes mellitus with hyperglycemia; E78.00 Pure hypercholesterolemia, unspecified; R63.4 Abnormal weight loss; I10 Essential (primary) hypertension; F42.2 Mixed obsessional thoughts and acts; G25.2 Other specified forms of tremor; Z79.82 Long term (current) use of aspirin; Z79.899 Other long term (current) drug therapy
CPT/HCPCS: 36415; 71046; 74018; 80053; 80061; 82607; 82746; 83036; 84153; 84403; 84439; 84443; 85025; 96127; 99396

== ENCOUNTER 2025-04-11 12:40 | Outpatient (AMB) | payer MEDICARE, MEDICAID, SELFPAY ==
--- NOTE | 2025-04-11 12:43 | A.OFFPC_ITS ---
Vital Signs 04/11/25 12:45 Height 5 ft 4 in Weight 120 lb 6 oz BMI 20.7 BP 110/62 Blood Pressure Location Lt brachial Position Sitting Pulse 72 Pulse Source Pulse Oximeter Pulse Oximetry (%) 97 Oxygen Delivery Method Room Air Intake Visit Reasons: Annual Exam Litigation Support Analyst Required: No Accompanied by: Self / Same As Patient Allergies benztropine Allergy (Mild, Verified 04/11/25 12:49) Rash Medication List - Last Reconciled 04/11/25 by Kathleen Clarke MD acetaminophen ER (Tylenol Arthritis Pain) 650 mg PO Q8H PRN aripiprazole 10 mg PO DAILY aspirin (Adult Aspirin Regimen) 81 mg PO DAILY [DIABETIC SNEAKERS As directed] docusate sodium 100 mg PO BID fluoxetine 20 mg PO DAILY fluticasone propionate 50 mcg/actuation (Flonase Allergy Relief) 1 spray intranasal DAILY lisinopril 5 mg PO QAM lorazepam 1 mg PO BID propranolol 20 mg PO BID simvastatin 20 mg PO BEDTIME trazodone 50 mg PO BEDTIME [twin size bed rail As directed] Tobacco use date assessed: 04/11/25 Fall risk assessment: No Falls in past year Last assessed Fall Risk: 04/11/25 Dental Screening Dental Screen Date: 04/11/25 Did you have a dental visit in the last 12 months?: Yes Did you have a dental problem in the last 6 months where you did not have access to dental care?: No Was dental information given to patient?: Patient has dentist HPI Annual Exam HPI Details seen neurology yesterday- walking os good and anxiety problem. going for ane program - Neurology [address] [facility] Medical History Otitis media Otitis externa Colon cancer screening Impulse control disease Urinary incontinence Hypercholesterolemia Dementia Obsessive compulsive disorder Autism Hypertension Type 2 diabetes mellitus with hyperglycemia TIA (transient ischemic attack) Surgical History Hx of colonoscopy Hx of hemorrhoidectomy Family History Father Medical history unknown Mother Medical history unknown Sister No problems noted. Social History Housing: Apartment Alcohol intake: never Patient Tobacco Use Status: Never used Tobacco Tobacco use type: Cigarette e-Cigarette/Vaping Use: Never Used Second Hand Smoke Exposure: No service: No Current occupational status: disabled Cognitive needs: Yes Hearing needs: Yes (hearing aides) Vision needs: No Questionnaire PHQ-9 Over the last 2 weeks, how often have you been bothered by any of the following problems? 1. Little interest or pleasure in doing things: not at all 2. Feeling down, depressed, or hopeless: not at all 3. Trouble falling or staying asleep, or sleeping too much: not at all 4. Feeling tired or having little energy: not at all 5. Poor appetite or overeating: not at all 6. Feeling bad about yourself - or that you are a failure or have let yourself or your family down: not at all 7. Trouble concentrating on things, such as reading the newspaper or watching television: not at all 8. Moving or speaking so slowly that other people could have noticed. Or the opposite - being so fidgety or restless that you have been moving around a lot more than usual: not at all 9. Thoughts that you would be better off or of hurting yourself in some way: not at all Total score: 0 Depression Screening Interpretation: Negative Depression Screening Done: Yes 41027 - PHQ-9 Billing: Yes Source: Developed by Drs. Rafael Gonsales, Lilia Kate, Paco Barr and colleagues, with an educational pauline from [employer]. Thrive Questionnaire Date Thrive assessed: 04/11/25 I am a: Patient What is your living situation today?: I have a steady place to live Within the past 12 months, did the food you bought not last and you didn't have the money to get more?: Never true Within the past 12 months, did you worry whether your food would run out before you got money to buy more?: Never true Do you have trouble paying for medicines?: No Do you have trouble getting transportation to medical appointments?: No Do you have trouble paying your heating and electricity bill?: No Do you have trouble taking care of your child, family member or friend?: No Do you have trouble with day-to-day activities such as bathing, preparing meals, shopping, managing finances, etc.?: Yes Are you currently unemployed and looking for a job?: No Are you interested in more education?: No Please select the resources that you would like help with: None Currently or been in a relationship where the following occur: No concerns reported THRIVE Score: 0 AUDIT C Alcohol Use Questionnaire (AUDIT-C) 1. How often do you have a drink containing alcohol?: Never 3. How often do you have six or more drinks on one occasion?: Never Total Score: 0 MALIA-7 AMB Questionnaire MALIA-7 Date MALIA - 7 assessed: 04/11/25 Feeling nervous, anxious, or on edge: 3 = Nearly every day Not being able to stop or control worryin = Nearly every day Worrying too much about different things: 1 = Several days Trouble relaxin = Several days Being so restless that it is hard to sit still: 1 = Several days Becoming easily annoyed or irritable: 0 = Not at all Feeling afraid as if something awful might happen: 0 = Not at all Total MALIA-7 score (0-4 normal; 5-9 mild; 10-14 moderate; 15-21 severe): 9 Source: Developed by Drs. Rafael Gonsales, Lilia Kate, Paco Barr and colleagues, with an educational pauline from [employer]. MALIA-7 Assessment Billing MALIA-7 Assessment Tool: MALIA-7 Assessment 56124 Review of Systems Const Denies poor appetite and Denies weakness Eyes Denies no additional complaints ENT Reports Normal hearing present, Denies dizziness, Denies nasal congestion, Denies tinnitus and Denies sore throat Card Denies chest pain, Denies syncope, Denies rapid heart rate and Denies dyspnea Resp Denies cough and Denies dyspnea GI Denies change in stool character, Reports constipation, Denies diarrhea, Denies nausea and Denies vomiting Denies dysuria and Denies urinary frequency Neuro Reports Normal hearing present, Denies confusion, Denies dizziness, Denies syncope and Denies weakness Psych Denies confusion Physical exam (Primary Care) Vital Signs: Last Vital Signs Pulse 72 04/11/25 12:45 BP 110/62 04/11/25 12:45 Pulse Ox 97 04/11/25 12:45 Oxygen Delivery Method Room Air 04/11/25 12:45 BMI result Body Mass Index 20.7 Tobacco/Smoking Status: Tobacco use Status Tobacco use date assessed 04/11/25 04/11/25 12:50 Patient Tobacco Use Status Never used Tobacco 04/11/25 12:50 Tobacco use type Cigarette 04/11/25 12:50 e-Cigarette/Vaping Use Never Used 04/11/25 12:50 PHQ-9: PHQ-9 Score PHQ-9: Total score 0 04/11/25 12:53 Depression Screening Interpretation: Negative Thrive Assessment: Date of Thrive Assessment Date Thrive assessed 04/11/25 04/11/25 12:50 Currently or been in a relationship where the following occur: No concerns reported Const General: No confusion Orientation/consciousness: No confusion HENMT Head: Yes normocephalic Ears: external ears normal and TM's normal bilaterally Face and sinus: Yes normal facial exam Mouth: moist mucous membranes Throat: Yes tonsils normal Eyes Conjunctivae: conjunctivae normal Pupils: Equal, round and reactive pupils present and Pupil accommodation reflex normal Direct Ophthalmoscopy: normal light reflex Neck Neck: No lymphadenopathy Thyroid: Thyroid normal Chest Chest palpation & inspection: normal inspection of the chest Resp Effort & Inspection: normal respiratory effort and no audible wheezes Auscultation: clear to auscultation bilaterally, no crackles, no wheezes and lung sounds not diminished Cardio Rate: regular rate Rhythm: regular rhythm Peripheral pulses: radial pulses present and dorsalis pedis present GI Palpation (GI): no masses Auscultation: normal bowel sounds and normoactive bowel sounds Rectal Exam - Male: Yes deferred Skin General skin exam: no rashes or lesions noted Rashes: no rashes Neuro General: No confusion Cranial nerves: Yes Equal, round and reactive pupils present and Yes Normal hearing present Cognition (Neuro): normal cognition Gait exam (Neuro): Normal gait present Motor exam (neuro): 5/5 motor strength present throughout Deep tendon reflexes (DTR's): Right brachioradialis reflex intensity grade: 2+, Left brachioradialis reflex intensity grade: 2+, Right patellar reflex intensity grade: 2+ and Left patellar reflex intensity grade: 2+ Extrem General: No edema Coding Level of Care Code Est Pt Prev Care 40-64y(88614) Diagnoses Annual physical exam Z00.00 Essential hypertension I10 Hypertension type: essential hypertension Hypercholesterolemia E78.00 Type 2 diabetes mellitus with hyperglycemia, without long-term current use of insulin E11.65 Diabetes mellitus care home insulin use: without care home use Osteoporosis M81.0 Mixed obsessional thoughts and acts F42.2 Obsessive-compulsive disorder type: mixed obsessional thoughts and acts Coarse tremors G25.2 Weight loss R63.4 Additional Codes MALIA-7 Assessment Billing - MALIA-7 Assessment Tool: MALIA-7 Assessment 80900 ([id number]) PHQ-9 - 90702 - PHQ-9 Billing: Yes ([id number]) Assessment & Plan Assessment & Plan (1) Annual physical exam: Code(s): Z00.00 - Encounter for general adult medical examination without abnormal findings Category: Medical Plan: Patient is advised to eat healthy, keep well hydrated, keep active and have adequate sleep. (2) Hypertension: Code(s): I10 - Essential (primary) hypertension Category: Medical Qualifiers: Hypertension type: essential hypertension Qualified Code(s): I10 - Essential (primary) hypertension Plan: On propranolol 20 mg twice a day lisinopril 5 mg once a day (3) Hypercholesterolemia: Code(s): E78.00 - Pure hypercholesterolemia, unspecified Category: Medical Plan: Avoid fried foods, chicken skin, eggs, butter margarine, pastries and meat. Be it pork or beef they have a lot of cholesterol LDL goal of less than 100 and triglyceride of less than 150 blood work requested (4) Type 2 diabetes mellitus with hyperglycemia: Comment: Dr. Sawyer Code(s): E11.65 - Type 2 diabetes mellitus with hyperglycemia Category: Medical Qualifiers: Diabetes mellitus continuous churn buttermaker insulin use: without continuous churn buttermaker use Qualified Code(s): E11.65 - Type 2 diabetes mellitus with hyperglycemia Plan: Decrease the amount of carbohydrate intake, pasta, bread, rice and potatoes are all sugar and that is aside from all the sweet stuff, remember that fruits are good but they are Sweet also. (5) Osteoporosis: Code(s): M81.0 - Age-related osteoporosis without current pathological fracture Category: Medical Plan: Discussed about calcium and vitamin-D and keeping active (6) Obsessive compulsive disorder: Code(s): F42.9 - Obsessive-compulsive disorder, unspecified Category: Medical Qualifiers: Obsessive-compulsive disorder type: mixed obsessional thoughts and acts Qualified Code(s): F42.2 - Mixed obsessional thoughts and acts Plan: Continue to follow-up with psychiatry (7) Coarse tremors: Code(s): G25.2 - Other specified forms of tremor Category: Medical Plan: Continue to follow-up with psychiatry. On propranolol (8) Weight loss: Code(s): R63.4 - Abnormal weight loss Category: Medical Plan History of Present Illness The patient is a 64-year-old male presenting with a physical examination. He has a history of Autism Spectrum Disorder, Obsessive Compulsive Disorder, and dementia, which complicate his daily functioning and require ongoing management. Additionally, he has been diagnosed with diabetes mellitus, which is monitored regularly, and hypertension, which is controlled with medication. The patient also has hypercholesterolemia and osteoporosis, both of which are managed with lifestyle modifications and medication. He experienced an episode of otitis media in January, which was treated with Augmentin and Ciprodex. In October, he was diagnosed with arthritis in both feet, accompanied by hammer toes, which affects his mobility. Blood work in September revealed thrombocytopenia, although other parameters such as electrolytes and renal function were normal. The patient has been experiencing significant anxiety, which has been exacerbated by his current program, leading to increased dependency on a wheelchair. Despite this, he is encouraged to remain active, and his neurologist has confirmed that he does not have Parkinson's disease. Recently, there has been a concern about unexplained weight loss, despite a good appetite and no changes in dietary habits. The possibility of medication side effects or anxiety contributing to this weight loss is being considered. Health Maintenance - Blood work pending to assess current health status. - Encouraged to remain active and engage in regular exercise. - Discussion about calcium and vitamin D supplementation for bone health. - Follow-up with psychiatry for ongoing mental health management. - Regular monitoring of blood glucose levels and hemoglobin A1c for diabetes management. - Cholesterol management with a goal of LDL less than 100 mg/dL and triglycerides less than 150 mg/dL. Social History - Exercise: Engages in home exercises including walking and weight lifting. - Nutrition: Consumes a regular diet with no special dietary restrictions, enjoys meals such as pancakes, eggs, and sausage. - Functional Status: Increased dependency on a wheelchair due to anxiety, despite encouragement to remain active. Review of Systems - Neurological: Reports anxiety and dependency on a wheelchair. - Gastrointestinal: Denies changes in appetite despite weight loss. - Musculoskeletal: Reports arthritis in both feet with hammer toes affecting mobility. - General: Reports unexplained weight loss. Physical Exam General: Cooperative, healthy appearing, comfortable, no acute distress and well developed Orientation: Patient oriented x3 Limitations: No limitations Head: Normal to inspection Ears: Hearing grossly normal bilaterally, noted wax buildup in one ear Nose: Normal external nose present Face and sinus: Normal facial exam Eyes: Appearance normal, both eyes and all related structures, difficulty keeping eyes open Neck: Normal visual inspection and Yes full ROM Respiratory: Normal respiratory effort and able to speak in complete sentences. Clear to auscultation bilaterally Cardiovascular: Regular rate and rhythm. Normal S1 and S2 GI: Normal to inspection. Soft to palpation and nontender Skin: No rashes or lesions noted Neuro: Patient oriented x3, anxiety noted Extremities: Normal to inspection, weight loss noted Results - Labs: Blood work in September showed normal blood count with thrombocytopenia, normal electrolytes, and renal function. - Labs: Blood sugar was elevated at 140 mg/dL, hemoglobin A1c was normal, and liver function was fine. - Labs: Cholesterol levels were last tested in the previous year and were within normal limits. Plan Patient was informed and verbally consented to the use of an ambient scribe for clinic note documentation during this visit. 1. Autism Spectrum Disorder The patient continues to be managed for Autism Spectrum Disorder with supportive care and regular follow-ups with psychiatry to address associated behavioral issues. 2. Obsessive Compulsive Disorder Obsessive Compulsive Disorder is being managed with psychiatric support and medication as needed. 3. Dementia Dementia management includes monitoring cognitive function and ensuring safety at home, with regular follow-ups to assess progression. 4. Diabetes Mellitus Diabetes management includes monitoring blood glucose levels, maintaining a balanced diet, and regular exercise. Follow-up blood work is pending to assess current control. 5. Hypertension Hypertension is controlled with lisinopril 5 mg daily, and regular monitoring of blood pressure is advised. 6. Hypercholesterolemia Hypercholesterolemia management includes lifestyle modifications and a goal of LDL less than 100 mg/dL and triglycerides less than 150 mg/dL. 7. Osteoporosis Osteoporosis management includes calcium and vitamin D supplementation and encouraging weight-bearing exercises. 8. Otitis Media The episode of otitis media was treated with Augmentin and Ciprodex, with resolution of symptoms. 9. Arthritis In Both Feet With Hammer Toes Arthritis in both feet with hammer toes is managed with supportive care and monitoring of mobility issues. 10. Thrombocytopenia Thrombocytopenia was noted in recent blood work, and further evaluation is pending. 11. Anxiety Anxiety management includes psychiatric support and encouraging physical activity to reduce dependency on a wheelchair. 12. Weight Loss Unexplained weight loss is being evaluated with pending blood work and consideration of medication side effects. Discussion Notes During the visit, we discussed the management of the patient's multiple conditions, including Autism Spectrum Disorder, Obsessive Compulsive Disorder, and dementia. We reviewed the importance of regular follow-ups with psychiatry and the need for ongoing monitoring of diabetes and hypertension. The patient was advised to continue with current medications and lifestyle modifications to manage hypercholesterolemia and osteoporosis. We also addressed the recent weig ht loss and the potential role of anxiety and medication side effects. Follow-up blood work and a chest X-ray were ordered to further evaluate the weight loss. Patient Instructions - Continue taking all prescribed medications as directed. - Engage in regular physical activity and exercises at home. - Follow up with psychiatry for ongoing mental health support. - Monitor blood glucose levels regularly and maintain a balanced diet. - Await results of pending blood work and chest X-ray. Orders: Orders XR chest 2V Today R63.4 - Abnormal weight loss UA CC w/rflx Micro + Cult Today R30.0 - Dysuria, R63.4 - Abnormal weight loss Medications: New [ensure] As directed 30 ea 3RF R63.4 - Abnormal weight loss
[2025-04-11 12:45] VITALS: BP 110/62; PULSE 72; O2SAT 97; BMI 20.7
--- OUTSIDE RECORDS SUMMARY | 2025-04-11 15:00 | XMS_ITS | Clinical Summary ---
Author Organization [address] [place] [address] Address [address] [place] [address] Phone Care Team Providers Care Roofer Vinyl Coating Name Role Phone Kathleen Clarke MD Primary Care Provider Allergies No known active allergies Medications aspirin [...] 12/01/2017 Diabetes mellitus type 2, di et-controlled (CMS/[facility] V24, CMS/[facility] V28) 04/17/2016 Hammer toe of right foot 04/17/2016 Encounters Date Type Department Care Team Description 01/19/2025 2:30 PM EDT Office Visit Orthopedic Surgery [place] [address] [phone] Gilberto Francois DPM Controlled type 2 diabetes with neuropathy ([facility] V24, [facility] V28) (Primary Dx); Metatarsalgia of right foot; Arthritis of both feet; PAD (peripheral artery disease) ([facility] V24); Pain in toes of both feet; Dermatophytosis, nail; Hammertoes of both feet from Last 3 Months Medical History Medical History Date Comments Diabetes mellitus type 2, di et-controlled ([facility] V24, [facility] V28) 04/17/2016 DX:Diabetes mellitus type 2 , diet-controlled ([facility]) Hyperlipidemia DX:Hyperlipidemi a Hypertension DX:Hypertension CAD (coronary [...] 2:15 PM EDT Office Visit Orthopedic Surgery [facility] [address] [phone] Gilberto Francois DPM [address] [address] Health Maintenance Due Date Last Done Comments [...] Insurance MEDICAID - [place] MEDICARE Care Teams Roofer [employer]inyl Coating Relationship Specialty Start Date End Date Kathleen Clarke MD [address] [place] [address] [address] [facility] [place] [address] PCP - General Internal Medicine 02/05/16
== END 2025-04-11 13:28 | disposition home or self-care (01) ==
LOC: HO.HMCH 12:40
PROVIDERS: PCP Internal Medicine; Visit Provider Internal Medicine
DX: Z00.00 Encounter for general adult medical examination without abnormal findings (principal); E11.65 Type 2 diabetes mellitus with hyperglycemia; I10 Essential (primary) hypertension; E78.00 Pure hypercholesterolemia, unspecified; M81.0 Age-related osteoporosis without current pathological fracture; F42.2 Mixed obsessional thoughts and acts; G25.2 Other specified forms of tremor; R63.4 Abnormal weight loss

== ENCOUNTER → 2025-04-11 13:43 | Outpatient (BNV) | payer MEDICARE, MEDICAID, SELFPAY | PROVIDERS: PCP Internal Medicine; Visit Provider Radiology Diagnostic Radiology | DX: R63.4 Abnormal weight loss (principal); K59.00 Constipation, unspecified | CPT/HCPCS: 71046; 74018 ==

== ENCOUNTER 2025-04-12 11:06 | Outpatient (REF) | payer MEDICARE, MEDICAID, SELFPAY ==
[2025-04-12 13:52] LABS: Appearance Urine Turbid; Glucose Urine UA Negative (Negative); PH 7.0 (5.0-9.0); Specific Gravity - Urine 1.025 (1.005-1.025)
--- OUTSIDE RECORDS SUMMARY | 2025-04-12 14:13 | XMS_ITS | Clinical Summary ---
Author Organization [address] [facility] Address [address] [place] [address] Phone Care Team Providers Care Suction Operator Name Role Phone Kathleen Clarke MD Primary Care Provider [phone] Allergies No known active allergies Medications aspirin [...] 12/01/2017 Diabetes mellitus type 2, di et-controlled (CMS/[facility] V24, CMS/[facility] V28) 04/17/2016 Hammer toe of right foot 04/17/2016 Encounters Date Type Department Care Team Description 01/19/2025 2:30 PM EDT Office Visit Orthopedic Surgery [place] [address] [phone] Gilberto Francois DPM Controlled type 2 diabetes with neuropathy ([facility] [place] [place] V24, [facility] [place] [place] V28) (Primary Dx); Metatarsalgia of right foot; Arthritis of both feet; PAD (peripheral artery disease) ([facility] [place] [place] V24); Pain in toes of both feet; Dermatophytosis, nail; Hammertoes of both feet from Last 3 Months Medical History Medical History Date Comments Diabetes mellitus type 2, di et-controlled ([facility] V24, [facility] [place] [place] V28) 04/17/2016 DX:Diabetes mellitus type 2 , diet-controlled ([facility]) Hyperlipidemia DX:Hyperlipidemi a Hypertension DX:Hypertension [...] 2:15 PM EDT Office Visit Orthopedic Surgery [facility] [address] [phone] Gilberto Francois DPM [address] [address] Health Maintenance Due Date Last Done Comments [...] Insurance [place] - [place] Care Teams Suction Operator Relationship Specialty Start Date End Date Kathleen Clarke MD [address] [place] [address] [address] [facility] [place] [address] PCP - General Internal Medicine 02/05/16
[2025-04-12 14:48] LABS: Microalbum/Creatinine Ratio Ur 6.5 ug/mg cr (<30)
== END 2025-04-12 11:07 | disposition home or self-care (01) ==
LOC: HO.HMGCLNP 11:06
PROVIDERS: PCP Internal Medicine; Visit Provider Internal Medicine
DX: E11.65 Type 2 diabetes mellitus with hyperglycemia (principal); R30.0 Dysuria; R63.4 Abnormal weight loss
CPT/HCPCS: 81003; 82043; 82570

== ENCOUNTER 2025-07-21 14:08 | Outpatient (AMB) | payer MEDICARE, MEDICAID, SELFPAY ==
--- NOTE | 2025-07-21 14:16 | MHC.PC.OV ---
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 He has a history of autism, controlled diabetes mellitus, hypercholesterolemia, hypertension, obsessive-compulsive disorder, and osteoporosis. He was last seen in April for a physical exam. The patient has a history of bilateral foot pain and was seen by podiatry, where he underwent debridement. An abdominal X-ray was performed for constipation which revealed a moderate to large amount of stool throughout the colon. Blood work from April showed a normal blood count, normal electrolytes, and normal thyroid function. His blood sugar was 145 mg/dL with a normal hemoglobin A1c, and an LDL cholesterol of 49 mg/dL. A urine test was negative for proteinuria. X-rays in April also showed low lung volumes, attributed to his forward-bent posture. His diabetes is diet-controlled. For hypertension, he takes lisinopril 5 mg once a day and propranolol 20 mg twice a day. For hypercholesterolemia, he is on simvastatin 20 mg once a day. He follows up with psychiatry and takes trazodone, lorazepam, fluoxetine, and Abilify. The patient is experiencing significant stress related to a program he will be leaving soon. He is planning to start a new program after , which is closer to his home and is expected to be less restrictive. He had influenza last year, which reportedly affected his muscles. Health Maintenance The patient will receive an influenza vaccination today, as he has not had one this year and was ill with the flu last year. He was counseled on proper handwashing. We will continue to monitor his weight, and he was encouraged to improve his posture to alleviate back pain. Social History - Diagnosis of autism spectrum disorder. - The patient is under significant stress from a day program he attends, which he will be leaving soon. - He will be transitioning to a new program after [place], which is closer to home and expected to be less restrictive and stressful. - Nutrition: The patient's caregiver reports he - never stopped eating and is being given larger portions to promote weight gain. - He drinks Boost nutritional supplements. - Functional Status: The patient recently attended a dance and was active. - He has a tendency to lean forward, which has previously caused back pain. Results - Labs (from April): - CBC: Normal. - Electrolytes: Normal. - Blood sugar: 145 mg/dL. - Hemoglobin A1c: Normal. - Lipid Panel: LDL of 49 mg/dL. - Thyroid function: Normal. - Urinalysis: Negative for proteinuria. - Imaging: - Abdominal X-ray: Showed a moderate to large amount of stool throughout the colon. - Chest X-ray (from April): Showed low lung volumes. [facility] Medical History Otitis media Otitis externa Colon cancer screening Impulse control disease Urinary incontinence Hypercholesterolemia Dementia Obsessive compulsive disorder Autism Hypertension Type 2 diabetes mellitus with hyperglycemia TIA (transient ischemic attack) Surgical History Hx of colonoscopy Hx of hemorrhoidectomy Family History Father Medical history unknown Mother Medical history unknown Sister No problems noted. Social History Housing: Apartment Alcohol intake: never Patient Tobacco Use Status: Never used Tobacco Tobacco use type: Cigarette e-Cigarette/Vaping Use: Never Used Second Hand Smoke Exposure: No service: No Current occupational status: disabled Cognitive needs: Yes Hearing needs: Yes (hearing aides) Vision needs: No Questionnaire Thrive Questionnaire Date Thrive assessed: 04/05/25 I am a: Patient What is your living situation today?: I have a steady place to live Within the past 12 months, did the food you bought not last and you didn't have the money to get more?: Never true Within the past 12 months, did you worry whether your food would run out before you got money to buy more?: Never true Do you have trouble paying for medicines?: No Do you have trouble getting transportation to medical appointments?: No Do you have trouble paying your heating and electricity bill?: No Do you have trouble taking care of your child, family member or friend?: No Do you have trouble with day-to-day activities such as bathing, preparing meals, shopping, managing finances, etc.?: Yes Are you currently unemployed and looking for a job?: No Are you interested in more education?: No Please select the resources that you would like help with: None Currently or been in a relationship where the following occur: No concerns reported THRIVE Score: 0 MALIA-7 AMB Questionnaire MALIA-7 Date MALIA - 7 assessed: 04/11/25 Source: Developed by Drs. Rafael Gonsales, Lilia Kate, Paco Barr and colleagues, with an educational pauline from [employer]. Review of Systems Narrative Review of Systems - Psychiatric: Reports significant stress. - Gastrointestinal: Reports constipation. - Musculoskeletal: Reports history of bilateral foot pain. - Reports recent back pain associated with leaning forward. - All other systems were reviewed and are negative. Physical exam (Primary Care) Vital Signs: Last Vital Signs Temp 96.8 F 07/21/25 14:18 Pulse 72 07/21/25 14:18 BP 128/76 07/21/25 14:18 BMI result Body Mass Index 21.0 Tobacco/Smoking Status: Tobacco use Status Tobacco use date assessed 04/11/25 07/21/25 14:16 Patient Tobacco Use Status Never used Tobacco 07/21/25 14:16 Tobacco use type Cigarette 07/21/25 14:16 e-Cigarette/Vaping Use Never Used 07/21/25 14:16 Thrive Assessment: Date of Thrive Assessment Date Thrive assessed 04/05/25 07/21/25 14:16 Currently or been in a relationship where the following occur: No concerns reported Narrative Physical Exam - General: Patient noted to have a forward-bent posture. - Cardiovascular: Heart auscultated, findings not verbalized. - Respiratory: Lungs auscultated, findings not verbalized. - Cough is weak. Const General: alert; No acute distress Eyes Conjunctivae: conjunctivae normal Resp Auscultation: clear to auscultation bilaterally Cardio Rate: regular rate Rhythm: regular rhythm GI Inspection: Yes normal to inspection Extrem General: Yes normal to inspection and No edema Office Procedures Flu Questionnaire Does the patient have a severe egg allergy?: No Does the patient have severe life threatening allergies?: No Does the patient have a fever or illness today?: No Has the patient ever had Guillain-Valley Head Syndrome?: No Has the patient ever had any past reaction to a flu shot?: No Immunizations Fluarix [id number] (PF) 45 mcg (15 mcg x 3)/0.5 mL IM syringe Performing Provider: Kathleen Clarke MD [facility] Administered by: LION Goldman on 07/21/25 14:55 Dose Route Admin Location Dispensed Lot Number Expiration Date [place] Whizzer Operator 0.5 mL IM Left Deltoid 0.5 mL [id number] 01/30/26 [id number] [place] VIS Given Date VIS Provided VIS Publication Date 07/21/25 Single Vaccine 24 Eligibility Eligibility Date Funding Source Not [facility] Eligible 07/21/25 Private Coding Level of Care Code Est Pt Level 4 (59498) Diagnoses Type 2 diabetes mellitus with hyperglycemia, without long-term current use of insulin E11.65 Diabetes mellitus [facility] insulin use: without [facility] use Essential hypertension I10 Hypertension type: essential hypertension Hypercholesterolemia E78.00 Weight loss R63.4 Autism F84.0 Constipation K59.00 Assessment & Plan Assessment & Plan (1) Type 2 diabetes mellitus with hyperglycemia: Comment: Dr. Sawyer Code(s): E11.65 - Type 2 diabetes mellitus with hyperglycemia Category: Medical Qualifiers: Diabetes mellitus terminal operations supervisor insulin use: without terminal operations supervisor use Qualified Code(s): E11.65 - Type 2 diabetes mellitus with hyperglycemia Plan: Decrease the amount of carbohydrate intake, pasta, bread, rice and potatoes are all sugar and that is aside from all the sweet stuff, remember that fruits are good but they are Sweet also. Hemoglobin A1c goal of less than 6.5. Patient is diet controlled (2) Hypertension: Code(s): I10 - Essential (primary) hypertension Category: Medical Qualifiers: Hypertension type: essential hypertension Qualified Code(s): I10 - Essential (primary) hypertension Plan: Continue with blood pressure medication. Decrease salt intake and exercise on lisinopril 5 mg once a day propranolol 20 mg twice a day (3) Hypercholesterolemia: Code(s): E78.00 - Pure hypercholesterolemia, unspecified Category: Medical Plan: Avoid fried foods, chicken skin, eggs, butter margarine, pastries and meat. Be it pork or beef they have a lot of cholesterol LDL goal of less than 100 and triglyceride of less than 150 on simvastatin 20 mg once a day (4) Weight loss: Code(s): R63.4 - Abnormal weight loss Category: Medical Plan: Workup so far has been negative. (5) Autism: Code(s): F84.0 - Autistic disorder Category: Medical Plan: Continue to follow-up with psychiatry on trazodone lorazepam fluoxetine Abilify (6) Constipation: Code(s): K59.00 - Constipation, unspecified Category: Medical Plan: Three rules for constipation 1. Diet need to have a high fiber diet less of meat 2. Increase oral fluids 3. Exercise Plan Plan Patient was informed and verbally consented to the use of an ambient scribe for clinic note documentation during this visit. 1. Diabetes Mellitus The patient's diabetes is diet-controlled, and recent labs show a normal hemoglobin A1c. The plan is to continue with diet control, aiming for an HbA1c goal of less than 6.5%. 2. Hypertension The patient's hypertension is managed with medication. He will continue taking lisinopril 5 mg once a day and propranolol 20 mg twice a day. 3. Hypercholesterolemia The patient is on medication for hypercholesterolemia with a recent LDL of 49 mg/dL. He will continue simvastatin 20 mg once a day with a target LDL goal of less than 100 mg/dL and a triglyceride goal of less than 150 mg/dL. 4. Psychiatric Disorders The patient is experiencing significant stress related to his current program. He will continue to follow up with psychiatry and continue his current medications of trazodone, lorazepam, fluoxetine, and Abilify. His stress level will continue to be monitored. 5. Constipation An abdominal X-ray showed a moderate to large amount of stool. The plan is to continue monitoring as he had a bowel movement after the X-ray was taken. Discussion Notes I discussed the patient's recent abdominal X-ray, noting it showed a large amount of stool but no other abnormalities. I also explained that the previous finding of low lung volumes was likely due to his posture and inability to take a deep breath during the X-ray, and not related to stress. We discussed the significant stress he is experiencing from his current program and noted that he will be transitioning to a new program soon, which we hope will be beneficial. I will continue to monitor the patient closely. I recommended he receive his influenza vaccine today, given the prevalence of flu and his history of getting sick last year. I also provided guidance on handwashing. Additionally, I encouraged him to improve his posture to help with his back pain. Patient Instructions - You will receive your flu shot today to help protect you from getting sick this season. - Remember to wash your hands often to prevent catching the flu or other illnesses. - Continue taking your medications as prescribed for blood pressure, cholesterol, and mental health. - Continue to follow your diet to manage your diabetes. - Try to work on standing up straighter with your shoulders back. This will help with your back pain. - We will continue to follow up on your health. Please call if you have any questions or new concerns. Orders: Orders Influenza [id number] Immunization Today Z23 - Encounter for immunization
[2025-07-21 14:18] VITALS: BP 128/76; PULSE 72; TEMP 36; BMI 21.0
--- OUTSIDE RECORDS SUMMARY | 2025-07-21 15:42 | XMS_ITS | Clinical Summary ---
Author Organization [facility] Address [address] [place] [address] Phone Care Team Providers Care Assistant Construction Superintendent Name Role Phone Kathleen Clarke MD Primary Care Provider [phone] Allergies No known active allergies Medications aspirin [...] 2015 Hammer toe of right foot 04/17/2016 Encounters Date Type Department Care Team Description 04/24/2025 2:15 PM EDT Office Visit Orthopedic Surgery [facility] [address] [phone] Gilberto Francois DPM Controlled type 2 diabetes with neuropathy ([facility] V24, [facility] V28) (Primary Dx); Metatarsalgia of right foot; Arthritis of both feet; PAD (peripheral artery disease) ([facility] V24); Dermatophytosis, nail from Last 3 Months Medical History Medical History Date Comments Diabetes mellitus type 2, di et-controlled ([facility] V24, [facility] V28) 04/17/2016 DX:Diabetes mellitus type 2 , diet-controlled ([facility]) Hyperlipidemia DX:Hyperlipidemi a Hypertension DX:Hypertension CAD (coronary [...] on file Sexual Orientation Not on file Last Filed Vital Signs Vital Sign Reading [...] Care Team (Late st Contact Info) Description 07/24/2025 2:00 PM EST Office Visit Orthopedic Surgery - [place] [id number] [phone] Gilberto Francois DPM [facility] [place] [address] [place] [id number] Health Maintenance Due Date Last Done Comments Colorectal Cancer Screening: Colonoscopy 1960 Diabetes: Annual GFR (Glomerular Filtration Rate) 1960 Drug Screen 1960 Non-Opioid Controlled Substance Agreement 1960 Diabetes: Annual Foot Exam 1970 Diabetes: Annual Retina Eye Exam 1970 Pneumococcal Vaccine: 50+ Years (2 of 2 - PCV) 01/27/2018 01/27/2017 Cholesterol Screening (Lipid Panel) 07/12/2022 HIV Screening 07/12/2022 Hepatitis C Screening 07/12/2022 Medicare Annual Wellness Visit 07/12/2022 Social Influencers of Health Screening 07/12/2022 Diabetes: Annual Urine Albumin-Creatinine Ratio (uACR) 07/18/2022 Diabetes: Blood Sugar Control Test (HGBA1C) 07/18/2022 Hypertension/CHF/CAD Annual BMP Blood Test 07/18/2022 Depression Screening 08/03/2024 COVID-19 Vaccine ( season) 2025 10/05/2024, 05/14/2023, 06/20/2022, Additional history exists Influenza Vaccine (#1) 2025 , 05/14/2023, 06/20/2022, Additional history exists DTaP,Tdap,and Td Vaccines (2 - Td or Tdap) 04/05/2034 04/05/2024 Zoster Vaccines Completed 08/31/2022, 06/20/2022 RSV Immunization Adult Patients Completed 10/12/2024 HIB [...] Insurance MEDICA[place] - [place] MEDICARE Care Teams Assistant Construction Superintendent Relationship Specialty Start Date End Date Kathleen Clarke MD [address] [place] [address] [address] [facility] [place] [address] PCP - General Internal Medicine 02/05/16
== END 2025-07-21 15:01 | disposition home or self-care (01) ==
LOC: HO.HMCH 14:09
PROVIDERS: PCP Internal Medicine; Visit Provider Internal Medicine
DX: E11.65 Type 2 diabetes mellitus with hyperglycemia (principal); I10 Essential (primary) hypertension; E78.00 Pure hypercholesterolemia, unspecified; R63.4 Abnormal weight loss; F84.0 Autistic disorder; K59.00 Constipation, unspecified; Z23 Encounter for immunization

== ENCOUNTER → 2025-07-21 14:08 | Outpatient (BNVA) | payer MEDICARE, MEDICAID, SELFPAY | PROVIDERS: PCP Internal Medicine; Visit Provider Internal Medicine | DX: R63.4 Abnormal weight loss (principal); E11.65 Type 2 diabetes mellitus with hyperglycemia; I10 Essential (primary) hypertension; E78.00 Pure hypercholesterolemia, unspecified; F84.0 Autistic disorder; K59.00 Constipation, unspecified; Z23 Encounter for immunization | CPT/HCPCS: 90471; 90656; 99212 ==